=== PATIENT | female | born 1960 | race Caucasian/White ===

== ENCOUNTER 2016-08-30 12:25 | Emergency (ER) | payer OTHER ==
[2016-08-30 13:09] LABS: BASO # 0.1 K/mm3 (0.0-0.2); BASO % 0.8 % (0.0-1.0); EOS # 0.3 K/mm3 (0.0-0.50); EOS % 3.9 % (0.0-3.0); LARGE UNSTAINED CELL # 0.3 K/mm3 (0.0-0.4); LARGE UNSTAINED CELL % 3.7 % (0.0-4.0); LYMPH # 2.5 K/mm3 (1.5-4.5); LYMPH % 35.8 % (24.0-44.0); MEAN CORPUSCULAR HEMOGLOBIN 28.9 pg (27.0-33.0); MEAN CORPUSCULAR HGB CONC 33.1 g/dl (32.0-36.5); MEAN CORPUSCULAR VOLUME 87.3 fl (80.0-96.0); MONO # 0.5 K/mm3 (0.0-0.8); MONO % 6.5 % (0.0-5.0); NEUTROPHILS # 3.5 K/mm3 (1.8-7.7); NEUTROPHILS % 49.4 % (36.0-66.0); PLATELET COUNT, AUTOMATED 215 k/mm3 (150-450); RED CELL DISTRIBUTION WIDTH 12.8 % (11.5-14.5)
--- NOTE | 2016-08-30 13:22 | REP ---
Clinical: Contusion . Comparison: 08/21/06 . Findings: The mediastinum and cardiac silhouette are stable and within normal limits for portable technique. The lung jones are clear without acute consolidation, effusion, or pneumothorax. Skeletal structures are intact. Impression: Normal portable chest x-ray Signed by Jay Adkins MD 08/30/2016 01:13 P
[2016-08-30 13:24] LABS: ANION GAP 8 MEQ/L (8-16); BLOOD UREA NITROGEN 16 MG/DL (7-18); CALCIUM LEVEL 9.7 MG/DL (8.5-10.1); CARBON DIOXIDE LEVEL 27 MEQ/L (21-32); CHLORIDE LEVEL 108 MEQ/L (98-107); CREATININE FOR GFR 1.03 MG/DL (0.55-1.02); GLOMERULAR FILTRATION RATE 59.2 (>51); GLUCOSE, FASTING 96 MG/DL (70-105); POTASSIUM SERUM 3.6 MEQ/L (3.5-5.1); SODIUM LEVEL 143 MEQ/L (136-145)
--- NOTE | 2016-08-30 18:39 | EDDOCDS ---
Nurse's Notes [facility] Name: Mi Phillips Age: 55 yrs Sex: Female : 1960 Arrival Date: 08/30/2016 Time: 12:25 Bed 11 Private MD: NO PRIMARY PHYSICIAN, . Diagnosis: Chest pain, unspecified Presentation: 08/30 12:32 Presenting complaint: Patient states: mid sternal chest pain that started one hour ago. ck1 Denies nausea. Reports some SOB. 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 Adult Sepsis Screening: The patient does not have new or ck1 worsening altered mentation. Patient's respiratory rate is less than 22. Systolic blood pressure is greater than 100. Patient has a qSOFA score of 0- Negative Sepsis Screen. Suicide/Homicide risk assessment- the patient denies having any suicidal and/or homicidal ideations and does not present with any other emotional, behavioral or mental health complaints. Status: Patient is not a technical service specialist or dependent. Transition of care: patient was not received from another setting of care. Red Flag criteria, patient assessed and taken directly to a bed. 12:33 Method Of Arrival: Wheelchair ck1 Triage Assessment: 12:36 General: Appears in no apparent distress, comfortable, Behavior is appropriate for age, ck1 cooperative. Pain: Location: chest Pain At worst was 7 out of 10 on a pain scale. HIV screening NA for this visit Offered previously. Neurological: Level of Consciousness is awake, alert, obeys commands, Oriented to person, place, time. Cardiovascular: Chest pain is described as vague, radiates back episodes 60 minutes began 1 hour prior to arrival. Respiratory: Respiratory effort is even, unlabored, Respiratory pattern is regular, symmetrical. GI: No deficits noted. Derm: Skin is pink, warm & dry. 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 none - PMHx: mitral valve prolapse; - PSHx: Hysterectomy; - The history from nurses notes was reviewed: and I agree with what is documented. - Social history: Smoking status: Patient states former smoker of tobacco. No barriers to communication noted, The patient speaks fluent Bangladeshi, Speaks appropriately for age. - : The pt / caregiver states he / she is not on anticoagulants. Home medication list is obtained from the patient. - Hospitalizations: : No recent hospitalization is reported. - Exposure Risk Screening:: None identified. - Immunization history:: All immunizations up-to-date. - Family history: Pertinent for Mother has/had Father has/had Brother has/had cardiac disorder. - Social history:: the patient is a former smoker, the patient does not drink alcohol. Screenin:16 Screening information is obtained from the patient. Fall risk: No risks identified. lf1 Assistance ADL's: requires no assistance with activities of daily living. Abuse/DV Screen: The patient / caregiver reports he/she is: not in a situation that causes fear, pain or injury. Nutritional screening: No deficits noted. Advance Directives: Currently, there is no health care proxy. home support is adequate. Assessment: 12:45 General: Appears in no apparent distress, comfortable, Behavior is anxious, mlb1 cooperative. Pain: Denies pain. Cardiovascular: Rhythm is sinus rhythm No ectopy. Respiratory: Airway is patent Respiratory effort is even, unlabored, Breath sounds are clear bilaterally. Derm: Skin is pink, warm & dry. normal. 13:45 General: Appears in no apparent distress, comfortable, Behavior is appropriate for age, mlb1 cooperative. Pain: Denies pain. Respiratory: No deficits noted. 14:32 General: Appears in no apparent distress, comfortable, Behavior is appropriate for age, mlb1 cooperative. Pain: Denies pain. Cardiovascular: Rhythm is sinus rhythm No ectopy. 15:30 General: Appears in no apparent distress, comfortable, Behavior is cooperative. Pain: lf1 Denies pain. Neurological: Level of Consciousness is awake, alert, Oriented to person, place, time. Respiratory: Respiratory effort is even, unlabored, Respiratory pattern is regular, Breath sounds are clear bilaterally. GI: Denies nausea, vomiting. Derm: Skin is normal. 16:00 General: Appears in no apparent distress, comfortable. Respiratory: Respiratory effort lf1 is even, unlabored. 17:16 Adult Sepsis Screening: The patient does not have new or worsening altered mentation. lf1 Patient's respiratory rate is less than 22. Systolic blood pressure is greater than 100. Patient has a qSOFA score of 0- Negative Sepsis Screen. General: Appears in no apparent distress, comfortable, Behavior is cooperative. Pain: Denies pain. Neurological: Level of Consciousness is awake, alert. EENT: No deficits noted. Cardiovascular: Chest pain is denied. Respiratory: Respiratory effort is even, unlabored. GI: Denies nausea, vomiting. Derm: Skin is normal. 18:34 Adult Sepsis Screening: The patient does not have new or worsening altered mentation. lf1 Patient's respiratory rate is less than 22. Systolic blood pressure is greater than 100. Patient has a qSOFA score of 0- Negative Sepsis Screen. General: Appears in no apparent distress, comfortable, Behavior is cooperative. Pain: Denies pain. Neurological: Level of Consciousness is awake, alert, Oriented to person, place, time. EENT: No deficits noted. Cardiovascular: Chest pain is denied. Respiratory: Respiratory effort is even, unlabored, Respiratory pattern is regular. GI: Denies nausea, vomiting. Derm: Skin is pink, warm & dry. Vital Signs: 12:25 BP 159 / 82; Pulse 78; Resp 17; Temp 97.2(T); Pulse Ox 100% on R/A; Weight 90.72 kg lr2 (R); Height 5 ft. 5 in. (165.10 cm) (R); 13:09 BP 117 / 71 (auto/); lf1 13:09 Pulse 72 MON; Pulse Ox 97% ; lf1 13:24 BP 121 / 76 (auto/); lf1 13:24 Pulse 70 MON; Pulse Ox 95% ; lf1 13:39 BP 115 / 69 (auto/); lf1 13:39 Pulse 70 MON; Pulse Ox 95% ; lf1 13:54 BP 104 / 60 (auto/); lf1 13:54 Pulse 76 MON; Pulse Ox 97% ; lf1 14:09 BP 122 / 65 (auto/); lf1 14:09 Pulse 64 MON; Pulse Ox 97% ; lf1 14:24 BP 114 / 61 (auto/); lf1 14:24 Pulse 62 MON; Pulse Ox 99% ; lf1 14:39 BP 114 / 59 (auto/); lf1 14:39 Pulse 72 MON; Pulse Ox 97% ; lf1 14:54 BP 120 / 67 (auto/); lf1 14:55 Pulse 82 MON; Pulse Ox 98% ; lf1 15:09 BP 110 / 65 (auto/); lf1 15:09 Pulse 70 MON; Pulse Ox 97% ; lf1 15:24 BP 123 / 73 (auto/); lf1 15:25 Pulse 70 MON; Pulse Ox 97% ; lf1 15:39 Pulse 72 MON; Pulse Ox 99% ; lf1 15:39 BP 112 / 67 (auto/); Resp 16; lf1 15:54 BP 110 / 66 (auto/); lf1 15:54 Pulse 70 MON; Pulse Ox 97% ; lf1 16:09 BP 145 / 81 (auto/); lf1 16:10 Pulse 98 MON; lf1 16:24 BP 121 / 58 (auto/); lf1 16:24 Pulse 72 MON; Pulse Ox 99% ; lf1 16:39 BP 119 / 60 (auto/); lf1 16:39 Pulse 74 MON; Pulse Ox 97% ; lf1 16:54 BP 123 / 63 (auto/); lf1 16:54 Pulse 70 MON; Pulse Ox 97% ; lf1 17:06 Pulse 68 MON; Pulse Ox 97% ; lf1 17:09 BP 121 / 66 (auto/); lf1 17:09 Pulse 72 MON; Pulse Ox 98% ; lf1 17:16 Resp 16; Temp 97.6(O); Pain 0/10; lf1 17:24 BP 116 / 65 (auto/); lf1 17:25 Pulse 70 MON; Pulse Ox 97% ; lf1 17:39 BP 107 / 62 (auto/); lf1 17:40 Pulse 70 MON; Pulse Ox 96% ; lf1 17:54 BP 108 / 66 (auto/); lf1 17:55 Pulse 66 MON; Pulse Ox 99% ; lf1 18:09 BP 119 / 73 (auto/); lf1 18:10 Pulse 66 MON; Pulse Ox 97% ; lf1 18:24 BP 123 / 72 (auto/); lf1 18:25 Pulse 74 MON; Resp 16; Temp 98.0(O); Pulse Ox 96% ; Pain 0/10; lf1 12:25 Body Mass Index 33.28 (90.72 kg, 165.10 cm) lr2 Vitals: 12:25 RN notified that patient meets Red Flag criteria. lr2 12:29 Log In Time: August 30, 2016 at 12:25. lr2 ED Course: 12:27 Patient visited by Zoila Villanueva. lr2 12:27 Patient moved to Waiting lr2 12:28 NO PRIMARY PHYSICIAN, . is Private Physician. 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 Pulse ox on. NIBP on. dem1 12:39 EKG done. (by ED staff). Reviewed by Arron Ervin MD. dem1 12:40 Patient visited by Stephanie Beebe. dem1 12:40 Patient visited by Brigid Zaidi. nb2 12:44 Arron Ervin MD is Attending Physician. pc 12:46 Patient visited by Steve Booth, RN. mlb1 12:46 The patient / caregiver is instructed regarding the plan of care and ED course. Patient mishel has correct armband on for positive identification. Placed in gown. Bed in low position. Call light in reach. Side rails up X 1. 12:46 Inserted saline lock: 20 gauge in left antecubital area and blood collected. The mllorelei patient tolerated the procedure well. 12:57 Patient visited by Arron Ervin MD. pc 13:23 portable chest Returned. EDMS 13:45 Patient visited by Steve Booth, RN. mlb1 14:32 Patient visited by Steve Booth, RN. mlb1 14:56 EKG done. (by ED staff). Reviewed by Arron Ervin MD. nb2 14:58 Patient visited by Brigdi Zaidi. nb2 14:59 CARDIAC MARKER PANEL Sent. mlb1 16:01 [facility] Payment Agreement was scanned into [employer] and attached to record. zo 16:43 Patient visited by Arron Ervin MD. pc 17:25 CARDIAC MARKER PANEL Sent. lf1 17:25 Labs drawn. (by ED staff). Sent per order to lab. lf1 17:26 Patient visited by Patricia Reyes,JAKE. lf1 17:35 EKG done. (by ED staff). Reviewed by Arron Ervin MD. nb2 17:42 Patient visited by Brigid Zaidi. nb2 18:24 Ned Zepeda is Referral Physician. pc 18:25 Discontinued IV lock intact, bleeding controlled, pressure dressing applied, No lf1 redness/swelling at site. No procedures done that require assistance. 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): Aspirin Chewable Tablet 324 mg PO once mlb1 Order Results: Lab Order: Basic Metabolic Profile; SPEC'M 08/30/16 12:44 Test: GLUCOSE, FASTING; Value: 96; Range: 70-105; Units: MG/DL; Status: F Test: BLOOD UREA NITROGEN; Value: 16; Range: 7-18; Units: MG/DL; Status: F Test: CREATININE FOR GFR; Value: 1.03; Range: 0.55-1.02; Abnormal: Above high normal; Units: MG/DL; Status: F Test: GLOMERULAR FILTRATION RATE; Value: 59.2; Range: >51; Status: F Test: SODIUM LEVEL; Value: 143; Range: 136-145; Units: MEQ/L; Status: F Test: POTASSIUM SERUM; Value: 3.6; Range: 3.5-5.1; Units: MEQ/L; Status: F Test: CHLORIDE LEVEL; Value: 108; Range: 98-107; Abnormal: Above high normal; Units: MEQ/L; Status: F Test: CARBON DIOXIDE LEVEL; Value: 27; Range: 21-32; Units: MEQ/L; Status: F Test: ANION GAP; Value: 8; Range: 8-16; Units: MEQ/L; Status: F Test: CALCIUM LEVEL; Value: 9.7; Range: 8.5-10.1; Units: MG/DL; Status: F Test Note: ; Units are mL/min/1.73 m2 Chronic Kidney Disease Staging per NKF: Stage I & II GFR >=60 Normal to Mildly Decreased Stage III GFR 30-59 Moderately Decreased Stage IV GFR 15-29 Severely Decreased Stage V GFR <15 Very Little GFR Left ESRD GFR <15 on OPTICAL SYSTEMS ENGINEER Lab Order: CBC with Diff; SPEC'M 08/30/16 12:44 Test: WHITE BLOOD COUNT; Value: 7.0; Range: 4.0-10.0; Units: K/mm3; Status: F Test: RED BLOOD COUNT; Value: 4.73; Range: 4.00-5.40; Units: M/mm3; Status: F Test: HEMOGLOBIN; Value: 13.7; Range: 12.0-16.0; Units: g/dl; Status: F Test: HEMATOCRIT; Value: 41.3; Range: 36.0-47.0; Units: %; Status: F Test: MEAN CORPUSCULAR VOLUME; Value: 87.3; Range: 80.0-96.0; Units: fl; Status: F Test: MEAN CORPUSCULAR HEMOGLOBIN; Value: 28.9; Range: 27.0-33.0; Units: pg; Status: F Test: MEAN CORPUSCULAR HGB CONC; Value: 33.1; Range: 32.0-36.5; Units: g/dl; Status: F Test: RED CELL DISTRIBUTION WIDTH; Value: 12.8; Range: 11.5-14.5; Units: %; Status: F Test: PLATELET COUNT, AUTOMATED; Value: 215; Range: 150-450; Units: k/mm3; Status: F Test: NEUTROPHILS %; Value: 49.4; Range: 36.0-66.0; Units: %; Status: F Test: LYMPH %; Value: 35.8; Range: 24.0-44.0; Units: %; Status: F Test: MONO %; Value: 6.5; Range: 0.0-5.0; Abnormal: Above high normal; Units: %; Status: F Test: EOS %; Value: 3.9; Range: 0.0-3.0; Abnormal: Above high normal; Units: %; Status: F Test: BASO %; Value: 0.8; Range: 0.0-1.0; Units: %; Status: F Test: LARGE UNSTAINED CELL %; Value: 3.7; Range: 0.0-4.0; Units: %; Status: F Test: NEUTROPHILS #; Value: 3.5; Range: 1.8-7.7; Units: K/mm3; Status: F Test: LYMPH #; Value: 2.5; Range: 1.5-4.5; Units: K/mm3; Status: F Test: MONO #; Value: 0.5; Range: 0.0-0.8; Units: K/mm3; Status: F Test: EOS #; Value: 0.3; Range: 0.0-0.50; Units: K/mm3; Status: F Test: BASO #; Value: 0.1; Range: 0.0-0.2; Units: K/mm3; Status: F Test: LARGE UNSTAINED CELL #; Value: 0.3; Range: 0.0-0.4; Units: K/mm3; Status: F Lab Order: Cardiac Injury Profile; [facility] 08/30/16 12:44 Test: CPK CREATINE PHOSPHOKINASE; Value: 133; Range: 26-192; Units: U/L; Status: F Test: CK-MB VALUE MASS; Value: 1.7; Range: 0.0-3.6; Units: NG/ML; Status: F Test: MB/CK RELATIVE INDEX; Value: 1.27; Range: < OR =4; Status: F Test Note: ; DIAGNOSIS CRITERIA MMB ng/ml Relative Index (RI) NON-AMI < or = 5 N/A WORRELL [place]ONE > 5 < or = 4 AMI > 5 > 4 Lab Order: Troponin; [facility] 08/30/16 12:44 Test: TROPONIN I; Value: < 0.02; Range: < 0.10; Units: NG/ML; Status: F Test Note: ; Troponin I Reference Interval for Andela LOCI: 99th Percentile= 0.00-0.045 ng/ml Risk Stratification: <= 0.10 ng/ml Decreased Risk for Adverse Clinical Events. 0.10-1.50 ng/ml Increased Risk for Adverse Clinical Events. Evaluation of additional criterion and/or repeat testing in 2-6 hours is suggested to rule out myocardial damage. >= 1.50 ng/ml Indicative of Myocardial Injury. Lab Order: CARDIAC MARKER PANEL; [facility] 08/30/16 14:58 Test: CPK CREATINE PHOSPHOKINASE; Value: 121; Range: 26-192; Units: U/L; Status: F Test: CK-MB VALUE MASS; Value: 1.8; Range: 0.0-3.6; Units: NG/ML; Status: F Test: MB/CK RELATIVE INDEX; Value: 1.48; Range: < OR =4; Status: F Test: TROPONIN I; Value: < 0.02; Range: < 0.10; Units: NG/ML; Status: F Test Note: ; DIAGNOSIS CRITERIA MMB ng/ml Relative Index (RI) NON-AMI < or = 5 N/A WORRELL ZONE > 5 < or = 4 AMI > 5 > 4 Lab Order: CARDIAC MARKER PANEL; [facility] 08/30/16 17:23 Test: CPK CREATINE PHOSPHOKINASE; Value: 113; Range: 26-192; Units: U/L; Status: F Test: CK-MB VALUE MASS; Value: 1.4; Range: 0.0-3.6; Units: NG/ML; Status: F Test: MB/CK RELATIVE INDEX; Value: 1.23; Range: < OR =4; Status: F Test: TROPONIN I; Value: < 0.02; Range: < 0.10; Units: NG/ML; Status: F Test Note: ; DIAGNOSIS CRITERIA MMB ng/ml Relative Index (RI) NON-AMI < or = 5 N/A WORRELL ZONE > 5 < or = 4 AMI > 5 > 4 Radiology Order: portable chest Test: portable chest REASON FOR EXAMINATION: Chest Pain; Clinical: Contusion .; ; Comparison: 08/21/06 .; ; Findings:; The mediastinum and cardiac silhouette are stable and within normal limits for; portable technique. The lung jones are clear without acute consolidation,; effusion, or pneumothorax. Skeletal structures are intact.; ; Impression:; Normal portable chest x-ray; ; ; Signed by; Jay Adkins MD 08/30/2016 01:13 P; Outcome: 18:24 Discharge ordered by Provider. pc 18:25 Discharge Assessment: Patient awake, alert and oriented x 3. No cognitive and/or lf1 functional deficits noted. Patient verbalized understanding of disposition instructions. Patient awake and alert. Oriented to person, place and time. Patient verbalized understanding of disposition instructions. Patient has no functional deficits. patient administered narcotics - no. The following High Risk Discharge criteria are identified: None. Discharged to home ambulatory. Condition: improved. Discharge instructions given to patient, Instructed on discharge instructions, follow up and referral plans. medication usage, Demonstrated understanding of instructions, medications, Pt was receptive of discharge instructions/ teaching. Prescriptions given X 2. No special radiology studies were completed. Property :Personal belongings accompany Pt. 18:37 Patient left the ED. lf1 Signatures: Dispatcher [employer] EDMS Arron Ervin MD MD pc Barney, Michael B RN RN mlb1 Pat Lagos RN RN ck1 Krysten Castaneda RN RN jo3 Fabian Pate Lisa, RN RN lf1 Stephanie Beebe1 Brigid Zaidi2 Zoila Villanueva2 MTDD
--- NOTE | 2016-08-30 18:39 | EDDOCDS ---
Physician Documentation [facility] Name: Mi Phillips Age: 55 yrs Sex: Female : 1960 Arrival Date: 08/30/2016 Time: 12:25 Bed 11 Private MD: NO PRIMARY PHYSICIAN, . Disposition: 08/30 18:24 Critical Care: Critical care not applicable. pc Disposition: 08/30/16 18:24 Discharged to Home/Self Care. Impression: Chest pain, unspecified. - Condition is Stable. - Discharge Instructions: Nonspecific Chest Pain. - Prescriptions for Protonix 40 mg Oral Tablet - take 1 tablet by ORAL route once daily; 30 tablet. Aspirin 81 mg - take 1 tablet by ORAL route once daily; 90 tablet. - Medication Reconciliation, Local Pharmacy Hours form. - Follow up: Ned Zepeda; When: Call to arrange an appointment; Reason: Further diagnostic work-up, To establish care. - Problem is new. - Symptoms are resolved. HPI: 13:11 This 55 yrs old Female presents to ER via Wheelchair with complaints of Chest pc Pain. 13:11 The history is obtained from the patient. Symptoms began suddenly at 11:30, and pc resolved She was talking on the phone when she developed chest discomfort . Symptoms have resolved. They lasted for 1 hours. At its worst, the symptoms were a 5 out of 10. In the emergency department, the symptoms has resolved. The chest pain is described as a pressure, a tightness. It is located primarily in the substernal area. The pain radiates to the back. The chest pain was associated with no other symptoms. The symptoms are aggravated by nothing. The symptoms are alleviated by nothing. The patient's known risk factors for coronary artery disease include: smoking cigarettes, a family history of coronary artery disease. The patient has experienced a previous episode, last week, when she had it at night and blamed it on the [place] food he ate earlier. The patient has not recently seen a physician. Historical: - Allergies: No known drug Allergies; - Home Meds: 1. none - PMHx: mitral valve prolapse; - PSHx: Hysterectomy; - The history from nurses notes was reviewed: and I agree with what is documented. - Social history: Smoking status: Patient states former smoker of tobacco. No barriers to communication noted, The patient speaks fluent Pal[place]an, Speaks appropriately for age. - : The pt / caregiver states he / she is not on anticoagulants. Home medication list is obtained from the patient. - Hospitalizations: : No recent hospitalization is reported. - Exposure Risk Screening:: None identified. - Immunization history:: All immunizations up-to-date. - Family history: Pertinent for Mother has/had Father has/had Brother has/had cardiac disorder. - Social history:: the patient is a former smoker, the patient does not drink alcohol. 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 The cardiovascular, respiratory, pc gastrointestinal and neurological components are also addressed in the HPI. Exam: 13:11 General Appearance: alert, no acute distress. pc 13:11 ENT: ear, nose and throat normal, pharynx normal. 13:11 Neck: supple, non-tender, no masses are appreciated. 13:11 Respiratory: no respiratory distress, normal breath sounds. 13:11 Cardiovascular: regular pulse rate, regular heart rhythm, normal heart sounds, equal and full pulses bilaterally. 13:11 Abdomen: soft, non-tender, no organomegaly, normal bowel sounds. 13:11 Skin: skin color is normal, warm, dry. 13:11 Extremities: The extremities have a grossly normal appearance, are non-tender, without acute ROM abnormalities. 13:11 Neuro: alert, oriented to person, place and time, cranial nerves normal as tested, no motor deficits, no sensory deficits. 13:11 Psych: normal mood. Vital Signs: 12:25 BP 159 / 82; Pulse 78; Resp 17; Temp 97.2(T); Pulse Ox 100% on R/A; Weight 90.72 kg / lr2 200 lbs (R); Height 5 ft. 5 in. (165.10 cm) (R); 13:09 BP 117 / 71 (auto/); lf1 13:09 Pulse 72 MON; Pulse Ox 97% ; lf1 13:24 BP 121 / 76 (auto/); lf1 13:24 Pulse 70 MON; Pulse Ox 95% ; lf1 13:39 BP 115 / 69 (auto/); lf1 13:39 Pulse 70 MON; Pulse Ox 95% ; lf1 13:54 BP 104 / 60 (auto/); lf1 13:54 Pulse 76 MON; Pulse Ox 97% ; lf1 14:09 BP 122 / 65 (auto/); lf1 14:09 Pulse 64 MON; Pulse Ox 97% ; lf1 14:24 BP 114 / 61 (auto/); lf1 14:24 Pulse 62 MON; Pulse Ox 99% ; lf1 14:39 BP 114 / 59 (auto/); lf1 14:39 Pulse 72 MON; Pulse Ox 97% ; lf1 14:54 BP 120 / 67 (auto/); lf1 14:55 Pulse 82 MON; Pulse Ox 98% ; lf1 15:09 BP 110 / 65 (auto/); lf1 15:09 Pulse 70 MON; Pulse Ox 97% ; lf1 15:24 BP 123 / 73 (auto/); lf1 15:25 Pulse 70 MON; Pulse Ox 97% ; lf1 15:39 Pulse 72 MON; Pulse Ox 99% ; lf1 15:39 BP 112 / 67 (auto/); Resp 16; lf1 15:54 BP 110 / 66 (auto/); lf1 15:54 Pulse 70 MON; Pulse Ox 97% ; lf1 16:09 BP 145 / 81 (auto/); lf1 16:10 Pulse 98 MON; lf1 16:24 BP 121 / 58 (auto/); lf1 16:24 Pulse 72 MON; Pulse Ox 99% ; lf1 16:39 BP 119 / 60 (auto/); lf1 16:39 Pulse 74 MON; Pulse Ox 97% ; lf1 16:54 BP 123 / 63 (auto/); lf1 16:54 Pulse 70 MON; Pulse Ox 97% ; lf1 17:06 Pulse 68 MON; Pulse Ox 97% ; lf1 17:09 BP 121 / 66 (auto/); lf1 17:09 Pulse 72 MON; Pulse Ox 98% ; lf1 17:16 Resp 16; Temp 97.6(O); Pain 0/10; lf1 17:24 BP 116 / 65 (auto/); lf1 17:25 Pulse 70 MON; Pulse Ox 97% ; lf1 17:39 BP 107 / 62 (auto/); lf1 17:40 Pulse 70 MON; Pulse Ox 96% ; lf1 17:54 BP 108 / 66 (auto/); lf1 17:55 Pulse 66 MON; Pulse Ox 99% ; lf1 18:09 BP 119 / 73 (auto/); lf1 18:10 Pulse 66 MON; Pulse Ox 97% ; lf1 18:24 BP 123 / 72 (auto/); lf1 18:25 Pulse 74 MON; Resp 16; Temp 98.0(O); Pulse Ox 96% ; Pain 0/10; lf1 12:25 Body Mass Index 33.28 (90.72 kg, 165.10 cm) lr2 MDM: 12:34 ECG WITH READING ER PHYS+CARDIAG ordered. EDMS 12:58 Aspirin Chewable Tablet 324 mg PO once ordered. pc 12:58 Solo Musician/Pulse Ox/q 30 min VS ordered. pc 12:58 IV Saline Lock ordered. pc 12:58 Rhythm Strip to chart ordered. pc 13:00 Basic Metabolic Profile Ordered. EDMS 13:00 CBC with Diff Ordered. EDMS 13:00 Cardiac Injury Profile Ordered. EDMS 13:00 Troponin Ordered. EDMS 13:00 portable chest Ordered. EDMS 13:10 Test interpretation: EKG. pc 13:11 Differential diagnosis: acute myocardial infarction, coronary artery disease pc gastroesophageal reflux disease (GERD), unstable angina. Plan: labs, EKG, CXR, meds. The patient not medicated with aspirin in the Emergency Department because the patient had taken aspirin within 24 hours prior to arrival in the Emergency Department. 13:24 portable chest Reviewed. pc 13:24 CBC with Diff Reviewed. pc 13:27 Basic Metabolic Profile Reviewed. pc 13:27 Cardiac Injury Profile Reviewed. pc 13:27 Troponin Reviewed. pc 13:27 Repeat EKG (put time details section) ordered. pc 13:27 Redraw CIP &Troponin (put time in details section) ordered. pc 13:30 Repeat EKG (put time details section) complete. deg 13:30 Redraw CIP &Troponin (put time in details section) complete. deg 13:30 CARDIAC MARKER PANEL Ordered. EDMS 13:32 ECG WITH READING ER PHYS ordered. EDMS 13:34 Test interpretation: LAB - all labs as ordered have been reviewed, interpreted and pc considered in the overall management of the clinical presentation; X-RAY - interpreted by Radiologist and personally reviewed, 1 view chest no acute disease. 15:00 Test interpretation: EKG. pc 15:33 CARDIAC MARKER PANEL Reviewed. pc 15:35 Repeat EKG (put time details section) ordered. pc 15:35 Redraw CIP &Troponin (put time in details section) ordered. pc 15:39 Repeat EKG (put time details section) complete. deg 15:39 Redraw CIP &Troponin (put time in details section) complete. deg 15:40 ECG WITH READING ER PHYS ordered. EDMS 15:40 CARDIAC MARKER PANEL Ordered. EDMS 15:57 Financial registration complete. zo 16:01 [facility] Payment Agreement was scanned into [employer] and attached to record. zo 17:48 Data reviewed: old medical records, vital signs, nurses notes, EKG(s), lab test pc results, all radiology studies and available results. Test interpretation: EKG. 18:22 CARDIAC MARKER PANEL Reviewed. pc 18:24 The patient has been re-examined and re-evaluated. The clinical presentation did not pc require any ED treatment or interventions. Physician consultation: Dr. Ned Zepeda was contacted at 18:24, regarding patient's condition, and advises the medications/treatment as provided. and agrees with the treatment provided and advises the discharge plans as outlined. Disposition: The historical points, examination findings, and any diagnostic results supporting the provided diagnosis, were discussed with the patient or legal guardian. The need for outpatient follow up with the provider listed on their discharge instructions was discussed. They were encouraged to return to [facility], or the nearest ED, if symptoms worsen/persist, or for any other questions/concerns. EC:10 Rate is 70 beats/min. Rhythm is regular, Normal Sinus Rhythm. QRS [place] is Normal. MN pc interval is normal. QRS interval is normal. QT interval is normal. Q waves are Old in lead III. T waves are Normal. ST Segment is depressed in leads I, II, aVL, aVF, V3, V4, V5, V6, <1mm. Clinical impression: Normal Sinus Rhythm, Nonspecific ST-T changes, and Inferior SD - age indeterminate. 15:00 Rate is 61 beats/min. Rhythm is regular, Normal Sinus Rhythm. QRS [place] is Normal. MN pc interval is normal. QRS interval is normal. QT interval is normal. No Q waves. T waves are Normal. No ST changes noted. Clinical impression: Normal Sinus Rhythm. 17:48 Rate is 59 beats/min. Rhythm is regular, Normal Sinus Rhythm. QRS [place] is Normal. MN pc interval is normal. QRS interval is normal. QT interval is normal. Q waves are Old. T waves are Normal. No ST changes noted. Clinical impression: Sinus bradycardia and Inferior SD - age indeterminate. Administered Medications: 13:05 Not Given (pt took STUDIO COORDINATOR): Aspirin Chewable Tablet 324 mg PO once mlb1 Signatures: Dispatcher [employer] EDMS Arron Ervin MD MD pc Murray, Denise, Health Economist Unit deg Pat LagosRN RN ck1 Fabian Pate Lisa, RN RN lf1 Steve Booth RN mlb1 The chart was reviewed and I authenticate all verbal orders and agree with the evaluation and treatment provided.Attachments: 16:01 [facility] Payment Agreement zo MTDD
--- NOTE | 2016-08-31 19:35 | ECGEPIP ---
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
--- NOTE | 2016-08-31 19:44 | ECGEPIP ---
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
--- NOTE | 2016-09-01 19:39 | EDDOCDS ---
Physician Documentation [facility] Name: Mi Phillips Age: 55 yrs Sex: Female : 1960 Arrival Date: 08/30/2016 Time: 12:25 Bed 11 Private MD: NO PRIMARY PHYSICIAN, . Disposition: 08/30 18:24 Critical Care: Critical care not applicable. pc Disposition: 08/30/16 18:24 Discharged to Home/Self Care. Impression: Chest pain, unspecified. - Condition is Stable. - Discharge Instructions: Nonspecific Chest Pain. - Prescriptions for Protonix 40 mg Oral Tablet - take 1 tablet by ORAL route once daily; 30 tablet. Aspirin 81 mg - take 1 tablet by ORAL route once daily; 90 tablet. - Medication Reconciliation, Local Pharmacy Hours form. - Follow up: Ned Zepeda; When: Call to arrange an appointment; Reason: Further diagnostic work-up, To establish care. - Problem is new. - Symptoms are resolved. HPI: 13:11 This 55 yrs old Female presents to ER via Wheelchair with complaints of Chest pc Pain. 13:11 The history is obtained from the patient. Symptoms began suddenly at 11:30, and pc resolved She was talking on the phone when she developed chest discomfort . Symptoms have resolved. They lasted for 1 hours. At its worst, the symptoms were a 5 out of 10. In the emergency department, the symptoms has resolved. The chest pain is described as a pressure, a tightness. It is located primarily in the substernal area. The pain radiates to the back. The chest pain was associated with no other symptoms. The symptoms are aggravated by nothing. The symptoms are alleviated by nothing. The patient's known risk factors for coronary artery disease include: smoking cigarettes, a family history of coronary artery disease. The patient has experienced a previous episode, last week, when she had it at night and blamed it on the Indian food he ate earlier. The patient has not recently seen a physician. Historical: - Allergies: No known drug Allergies; - Home Meds: 1. none - PMHx: mitral valve prolapse; - PSHx: Hysterectomy; - The history from nurses notes was reviewed: and I agree with what is documented. - Social history: Smoking status: Patient states former smoker of tobacco. No barriers to communication noted, The patient speaks fluent [place]an, Speaks appropriately for age. - : The pt / caregiver states he / she is not on anticoagulants. Home medication list is obtained from the patient. - Hospitalizations: : No recent hospitalization is reported. - Exposure Risk Screening:: None identified. - Immunization history:: All immunizations up-to-date. - Family history: Pertinent for Mother has/had Father has/had Brother has/had cardiac disorder. - Social history:: the patient is a former smoker, the patient does not drink alcohol. 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 The cardiovascular, respiratory, pc gastrointestinal and neurological components are also addressed in the HPI. Exam: 13:11 General Appearance: alert, no acute distress. pc 13:11 ENT: ear, nose and throat normal, pharynx normal. 13:11 Neck: supple, non-tender, no masses are appreciated. 13:11 Respiratory: no respiratory distress, normal breath sounds. 13:11 Cardiovascular: regular pulse rate, regular heart rhythm, normal heart sounds, equal and full pulses bilaterally. 13:11 Abdomen: soft, non-tender, no organomegaly, normal bowel sounds. 13:11 Skin: skin color is normal, warm, dry. 13:11 Extremities: The extremities have a grossly normal appearance, are non-tender, without acute ROM abnormalities. 13:11 Neuro: alert, oriented to person, place and time, cranial nerves normal as tested, no motor deficits, no sensory deficits. 13:11 Psych: normal mood. Vital Signs: 12:25 BP 159 / 82; Pulse 78; Resp 17; Temp 97.2(T); Pulse Ox 100% on R/A; Weight 90.72 kg / lr2 200 lbs (R); Height 5 ft. 5 in. (165.10 cm) (R); 13:09 BP 117 / 71 (auto/); lf1 13:09 Pulse 72 MON; Pulse Ox 97% ; lf1 13:24 BP 121 / 76 (auto/); lf1 13:24 Pulse 70 MON; Pulse Ox 95% ; lf1 13:39 BP 115 / 69 (auto/); lf1 13:39 Pulse 70 MON; Pulse Ox 95% ; lf1 13:54 BP 104 / 60 (auto/); lf1 13:54 Pulse 76 MON; Pulse Ox 97% ; lf1 14:09 BP 122 / 65 (auto/); lf1 14:09 Pulse 64 MON; Pulse Ox 97% ; lf1 14:24 BP 114 / 61 (auto/); lf1 14:24 Pulse 62 MON; Pulse Ox 99% ; lf1 14:39 BP 114 / 59 (auto/); lf1 14:39 Pulse 72 MON; Pulse Ox 97% ; lf1 14:54 BP 120 / 67 (auto/); lf1 14:55 Pulse 82 MON; Pulse Ox 98% ; lf1 15:09 BP 110 / 65 (auto/); lf1 15:09 Pulse 70 MON; Pulse Ox 97% ; lf1 15:24 BP 123 / 73 (auto/); lf1 15:25 Pulse 70 MON; Pulse Ox 97% ; lf1 15:39 Pulse 72 MON; Pulse Ox 99% ; lf1 15:39 BP 112 / 67 (auto/); Resp 16; lf1 15:54 BP 110 / 66 (auto/); lf1 15:54 Pulse 70 MON; Pulse Ox 97% ; lf1 16:09 BP 145 / 81 (auto/); lf1 16:10 Pulse 98 MON; lf1 16:24 BP 121 / 58 (auto/); lf1 16:24 Pulse 72 MON; Pulse Ox 99% ; lf1 16:39 BP 119 / 60 (auto/); lf1 16:39 Pulse 74 MON; Pulse Ox 97% ; lf1 16:54 BP 123 / 63 (auto/); lf1 16:54 Pulse 70 MON; Pulse Ox 97% ; lf1 17:06 Pulse 68 MON; Pulse Ox 97% ; lf1 17:09 BP 121 / 66 (auto/); lf1 17:09 Pulse 72 MON; Pulse Ox 98% ; lf1 17:16 Resp 16; Temp 97.6(O); Pain 0/10; lf1 17:24 BP 116 / 65 (auto/); lf1 17:25 Pulse 70 MON; Pulse Ox 97% ; lf1 17:39 BP 107 / 62 (auto/); lf1 17:40 Pulse 70 MON; Pulse Ox 96% ; lf1 17:54 BP 108 / 66 (auto/); lf1 17:55 Pulse 66 MON; Pulse Ox 99% ; lf1 18:09 BP 119 / 73 (auto/); lf1 18:10 Pulse 66 MON; Pulse Ox 97% ; lf1 18:24 BP 123 / 72 (auto/); lf1 18:25 Pulse 74 MON; Resp 16; Temp 98.0(O); Pulse Ox 96% ; Pain 0/10; lf1 12:25 Body Mass Index 33.28 (90.72 kg, 165.10 cm) lr2 MDM: 12:34 ECG WITH READING ER PHYS+CARDIAG ordered. EDMS 12:58 Aspirin Chewable Tablet 324 mg PO once ordered. pc 12:58 Hide Tanner/Pulse Ox/q 30 min VS ordered. pc 12:58 IV Saline Lock ordered. pc 12:58 Rhythm Strip to chart ordered. pc 13:00 Basic Metabolic Profile Ordered. EDMS 13:00 CBC with Diff Ordered. EDMS 13:00 Cardiac Injury Profile Ordered. EDMS 13:00 Troponin Ordered. EDMS 13:00 portable chest Ordered. EDMS 13:10 Test interpretation: EKG. pc 13:11 Differential diagnosis: acute myocardial infarction, coronary artery disease pc gastroesophageal reflux disease (GERD), unstable angina. Plan: labs, EKG, CXR, meds. The patient not medicated with aspirin in the Emergency Department because the patient had taken aspirin within 24 hours prior to arrival in the Emergency Department. 13:24 portable chest Reviewed. pc 13:24 CBC with Diff Reviewed. pc 13:27 Basic Metabolic Profile Reviewed. pc 13:27 Cardiac Injury Profile Reviewed. pc 13:27 Troponin Reviewed. pc 13:27 Repeat EKG (put time details section) ordered. pc 13:27 Redraw CIP &Troponin (put time in details section) ordered. pc 13:30 Repeat EKG (put time details section) complete. deg 13:30 Redraw CIP &Troponin (put time in details section) complete. deg 13:30 CARDIAC MARKER PANEL Ordered. EDMS 13:32 ECG WITH READING ER PHYS ordered. EDMS 13:34 Test interpretation: LAB - all labs as ordered have been reviewed, interpreted and pc considered in the overall management of the clinical presentation; X-RAY - interpreted by Radiologist and personally reviewed, 1 view chest no acute disease. 15:00 Test interpretation: EKG. pc 15:33 CARDIAC MARKER PANEL Reviewed. pc 15:35 Repeat EKG (put time details section) ordered. pc 15:35 Redraw CIP &Troponin (put time in details section) ordered. pc 15:39 Repeat EKG (put time details section) complete. deg 15:39 Redraw CIP &Troponin (put time in details section) complete. deg 15:40 ECG WITH READING ER PHYS ordered. EDMS 15:40 CARDIAC MARKER PANEL Ordered. EDMS 15:57 Financial registration complete. zo 16:01 [facility] Payment Agreement was scanned into [employer] and attached to record. zo 17:48 Data reviewed: old medical records, vital signs, nurses notes, EKG(s), lab test pc results, all radiology studies and available results. Test interpretation: EKG. 18:22 CARDIAC MARKER PANEL Reviewed. pc 18:24 The patient has been re-examined and re-evaluated. The clinical presentation did not pc require any ED treatment or interventions. Physician consultation: Dr. Ned Zepeda was contacted at 18:24, regarding patient's condition, and advises the medications/treatment as provided. and agrees with the treatment provided and advises the discharge plans as outlined. Disposition: The historical points, examination findings, and any diagnostic results supporting the provided diagnosis, were discussed with the patient or legal guardian. The need for outpatient follow up with the provider listed on their discharge instructions was discussed. They were encouraged to return to [facility], or the nearest ED, if symptoms worsen/persist, or for any other questions/concerns. 08/31 12:34 ECG/EKG was scanned into [employer] and attached to record. gb EC/16 13:10 Rate is 70 beats/min. Rhythm is regular, Normal Sinus Rhythm. QRS [place] is Normal. SD pc interval is normal. QRS interval is normal. QT interval is normal. Q waves are Old in lead III. T waves are Normal. ST Segment is depressed in leads I, II, aVL, aVF, V3, V4, V5, V6, <1mm. Clinical impression: Normal Sinus Rhythm, Nonspecific ST-T changes, and Inferior [place] - age indeterminate. 15:00 Rate is 61 beats/min. Rhythm is regular, Normal Sinus Rhythm. QRS [place] is Normal. SD pc interval is normal. QRS interval is normal. QT interval is normal. No Q waves. T waves are Normal. No ST changes noted. Clinical impression: Normal Sinus Rhythm. 17:48 Rate is 59 beats/min. Rhythm is regular, Normal Sinus Rhythm. QRS [place] is Normal. SD pc interval is normal. QRS interval is normal. QT interval is normal. Q waves are Old. T waves are Normal. No ST changes noted. Clinical impression: Sinus bradycardia and Inferior IL - age indeterminate. 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
--- NOTE | 2016-09-01 19:39 | EDDOCDS ---
Nurse's Notes [facility] Name: Yordan Galan Age: 55 yrs Sex: Female : 1960 Arrival Date: 08/30/2016 Time: 12:25 Bed 11 Private MD: NO PRIMARY PHYSICIAN, . Diagnosis: Chest pain, unspecified Presentation: 08/30 12:32 Presenting complaint: Patient states: mid sternal chest pain that started one hour ago. ck1 Denies nausea. Reports some SOB. 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 Adult Sepsis Screening: The patient does not have new or ck1 worsening altered mentation. Patient's respiratory rate is less than 22. Systolic blood pressure is greater than 100. Patient has a qSOFA score of 0- Negative Sepsis Screen. Suicide/Homicide risk assessment- the patient denies having any suicidal and/or homicidal ideations and does not present with any other emotional, behavioral or mental health complaints. Status: Patient is not a client services associate or dependent. Transition of care: patient was not received from another setting of care. Red Flag criteria, patient assessed and taken directly to a bed. 12:33 Method Of Arrival: Wheelchair ck1 Triage Assessment: 12:36 General: Appears in no apparent distress, comfortable, Behavior is appropriate for age, ck1 cooperative. Pain: Location: chest Pain At worst was 7 out of 10 on a pain scale. HIV screening NA for this visit Offered previously. Neurological: Level of Consciousness is awake, alert, obeys commands, Oriented to person, place, time. Cardiovascular: Chest pain is described as vague, radiates back episodes 60 minutes began 1 hour prior to arrival. Respiratory: Respiratory effort is even, unlabored, Respiratory pattern is regular, symmetrical. GI: No deficits noted. Derm: Skin is pink, warm & dry. CLINICAL DATA ANALYST: 12:38 LMP N/A - Hysterectomy ck1 Historical: - Allergies: No known drug Allergies; - Home Meds: 1. none - PMHx: mitral valve prolapse; - PSHx: Hysterectomy; - The history from nurses notes was reviewed: and I agree with what is documented. - Social history: Smoking status: Patient states former smoker of tobacco. No barriers to communication noted, The patient speaks fluent Indian, Speaks appropriately for age. - : The pt / caregiver states he / she is not on anticoagulants. Home medication list is obtained from the patient. - Hospitalizations: : No recent hospitalization is reported. - Exposure Risk Screening:: None identified. - Immunization history:: All immunizations up-to-date. - Family history: Pertinent for Mother has/had Father has/had Brother has/had cardiac disorder. - Social history:: the patient is a former smoker, the patient does not drink alcohol. Screenin:16 Screening information is obtained from the patient. Fall risk: No risks identified. lf1 Assistance ADL's: requires no assistance with activities of daily living. Abuse/DV Screen: The patient / caregiver reports he/she is: not in a situation that causes fear, pain or injury. Nutritional screening: No deficits noted. Advance Directives: Currently, there is no health care proxy. home support is adequate. Assessment: 12:45 General: Appears in no apparent distress, comfortable, Behavior is anxious, mlb1 cooperative. Pain: Denies pain. Cardiovascular: Rhythm is sinus rhythm No ectopy. Respiratory: Airway is patent Respiratory effort is even, unlabored, Breath sounds are clear bilaterally. Derm: Skin is pink, warm & dry. normal. 13:45 General: Appears in no apparent distress, comfortable, Behavior is appropriate for age, mlb1 cooperative. Pain: Denies pain. Respiratory: No deficits noted. 14:32 General: Appears in no apparent distress, comfortable, Behavior is appropriate for age, mlb1 cooperative. Pain: Denies pain. Cardiovascular: Rhythm is sinus rhythm No ectopy. 15:30 General: Appears in no apparent distress, comfortable, Behavior is cooperative. Pain: lf1 Denies pain. Neurological: Level of Consciousness is awake, alert, Oriented to person, place, time. Respiratory: Respiratory effort is even, unlabored, Respiratory pattern is regular, Breath sounds are clear bilaterally. GI: Denies nausea, vomiting. Derm: Skin is normal. 16:00 General: Appears in no apparent distress, comfortable. Respiratory: Respiratory effort lf1 is even, unlabored. 17:16 Adult Sepsis Screening: The patient does not have new or worsening altered mentation. lf1 Patient's respiratory rate is less than 22. Systolic blood pressure is greater than 100. Patient has a qSOFA score of 0- Negative Sepsis Screen. General: Appears in no apparent distress, comfortable, Behavior is cooperative. Pain: Denies pain. Neurological: Level of Consciousness is awake, alert. EENT: No deficits noted. Cardiovascular: Chest pain is denied. Respiratory: Respiratory effort is even, unlabored. GI: Denies nausea, vomiting. Derm: Skin is normal. 18:34 Adult Sepsis Screening: The patient does not have new or worsening altered mentation. lf1 Patient's respiratory rate is less than 22. Systolic blood pressure is greater than 100. Patient has a qSOFA score of 0- Negative Sepsis Screen. General: Appears in no apparent distress, comfortable, Behavior is cooperative. Pain: Denies pain. Neurological: Level of Consciousness is awake, alert, Oriented to person, place, time. EENT: No deficits noted. Cardiovascular: Chest pain is denied. Respiratory: Respiratory effort is even, unlabored, Respiratory pattern is regular. GI: Denies nausea, vomiting. Derm: Skin is pink, warm & dry. Vital Signs: 12:25 BP 159 / 82; Pulse 78; Resp 17; Temp 97.2(T); Pulse Ox 100% on R/A; Weight 90.72 kg lr2 (R); Height 5 ft. 5 in. (165.10 cm) (R); 13:09 BP 117 / 71 (auto/); lf1 13:09 Pulse 72 MON; Pulse Ox 97% ; lf1 13:24 BP 121 / 76 (auto/); lf1 13:24 Pulse 70 MON; Pulse Ox 95% ; lf1 13:39 BP 115 / 69 (auto/); lf1 13:39 Pulse 70 MON; Pulse Ox 95% ; lf1 13:54 BP 104 / 60 (auto/); lf1 13:54 Pulse 76 MON; Pulse Ox 97% ; lf1 14:09 BP 122 / 65 (auto/); lf1 14:09 Pulse 64 MON; Pulse Ox 97% ; lf1 14:24 BP 114 / 61 (auto/); lf1 14:24 Pulse 62 MON; Pulse Ox 99% ; lf1 14:39 BP 114 / 59 (auto/); lf1 14:39 Pulse 72 MON; Pulse Ox 97% ; lf1 14:54 BP 120 / 67 (auto/); lf1 14:55 Pulse 82 MON; Pulse Ox 98% ; lf1 15:09 BP 110 / 65 (auto/); lf1 15:09 Pulse 70 MON; Pulse Ox 97% ; lf1 15:24 BP 123 / 73 (auto/); lf1 15:25 Pulse 70 MON; Pulse Ox 97% ; lf1 15:39 Pulse 72 MON; Pulse Ox 99% ; lf1 15:39 BP 112 / 67 (auto/); Resp 16; lf1 15:54 BP 110 / 66 (auto/); lf1 15:54 Pulse 70 MON; Pulse Ox 97% ; lf1 16:09 BP 145 / 81 (auto/); lf1 16:10 Pulse 98 MON; lf1 16:24 BP 121 / 58 (auto/); lf1 16:24 Pulse 72 MON; Pulse Ox 99% ; lf1 16:39 BP 119 / 60 (auto/); lf1 16:39 Pulse 74 MON; Pulse Ox 97% ; lf1 16:54 BP 123 / 63 (auto/); lf1 16:54 Pulse 70 MON; Pulse Ox 97% ; lf1 17:06 Pulse 68 MON; Pulse Ox 97% ; lf1 17:09 BP 121 / 66 (auto/); lf1 17:09 Pulse 72 MON; Pulse Ox 98% ; lf1 17:16 Resp 16; Temp 97.6(O); Pain 0/10; lf1 17:24 BP 116 / 65 (auto/); lf1 17:25 Pulse 70 MON; Pulse Ox 97% ; lf1 17:39 BP 107 / 62 (auto/); lf1 17:40 Pulse 70 MON; Pulse Ox 96% ; lf1 17:54 BP 108 / 66 (auto/); lf1 17:55 Pulse 66 MON; Pulse Ox 99% ; lf1 18:09 BP 119 / 73 (auto/); lf1 18:10 Pulse 66 MON; Pulse Ox 97% ; lf1 18:24 BP 123 / 72 (auto/); lf1 18:25 Pulse 74 MON; Resp 16; Temp 98.0(O); Pulse Ox 96% ; Pain 0/10; lf1 12:25 Body Mass Index 33.28 (90.72 kg, 165.10 cm) lr2 Vitals: 12:25 RN notified that patient meets Red Flag criteria. lr2 12:29 Log In Time: August 30, 2016 at 12:25. lr2 ED Course: 12:27 Patient visited by Zoila Villanueva. lr2 12:27 Patient moved to Waiting lr2 12:28 NO PRIMARY PHYSICIAN, . is Private Physician. lr2 12:29 Patient moved to Pre RCE lr2 12:30 Patient moved to 11 jo3 12:32 Triage Initiated ck1 12:39 passenger agent on. Pulse ox on. NIBP on. dem1 12:39 EKG done. (by ED staff). Reviewed by Arron Ervin MD. dem1 12:40 Patient visited by Stephanie Beebe. dem1 12:40 Patient visited by Brigid Zaidi. nb2 12:44 Arron Ervin MD is Attending Physician. pc 12:46 Patient visited by Steve Booth, RN. mlb1 12:46 The patient / caregiver is instructed regarding the plan of care and ED course. Patient mishel has correct armband on for positive identification. Placed in gown. Bed in low position. Call light in reach. Side rails up X 1. 12:46 Inserted saline lock: 20 gauge in left antecubital area and blood collected. The mllorelei patient tolerated the procedure well. 12:57 Patient visited by Arron Ervin MD. pc 13:23 portable chest Returned. EDMS 13:45 Patient visited by Steve Booth, RN. mlb1 14:32 Patient visited by Steve Booth, RN. mlb1 14:56 EKG done. (by ED staff). Reviewed by Arron Ervin MD. nb2 14:58 Patient visited by Brigid Zaidi. nb2 14:59 CARDIAC MARKER PANEL Sent. mlb1 16:01 [facility] Payment Agreement was scanned into [employer] System and attached to record. zo 16:43 Patient visited by Arron Ervin MD. pc 17:25 CARDIAC MARKER PANEL Sent. lf1 17:25 Labs drawn. (by ED staff). Sent per order to lab. lf1 17:26 Patient visited by Patricia Reyes,JAKE. lf1 17:35 EKG done. (by ED staff). Reviewed by Arron Ervin MD. nb2 17:42 Patient visited by Brigid Zaidi. nb2 18:24 Ned Zepeda is Referral Physician. pc 18:25 Discontinued IV lock intact, bleeding controlled, pressure dressing applied, No lf1 redness/swelling at site. No procedures done that require assistance. 08/31 12:34 ECG/EKG was scanned into Data D[employer] System and attached to record. gb 20:02 EKG-ADULT Returned. EDMS 20:02 ECG WITH READING ER PHYS Returned. 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 MACHINE OPERATOR HELPER): Aspirin Chewable Tablet 324 mg PO once mlb1 Order Results: Lab Order: Basic Metabolic Profile; SPEC'M 08/30/16 12:44 Test: GLUCOSE, FASTING; Value: 96; Range: 70-105; Units: MG/DL; Status: F Test: BLOOD UREA NITROGEN; Value: 16; Range: 7-18; Units: MG/DL; Status: F Test: CREATININE FOR GFR; Value: 1.03; Range: 0.55-1.02; Abnormal: Above high normal; Units: MG/DL; Status: F Test: GLOMERULAR FILTRATION RATE; Value: 59.2; Range: >51; Status: F Test: SODIUM LEVEL; Value: 143; Range: 136-145; Units: MEQ/L; Status: F Test: POTASSIUM SERUM; Value: 3.6; Range: 3.5-5.1; Units: MEQ/L; Status: F Test: CHLORIDE LEVEL; Value: 108; Range: 98-107; Abnormal: Above high normal; Units: MEQ/L; Status: F Test: CARBON DIOXIDE LEVEL; Value: 27; Range: 21-32; Units: MEQ/L; Status: F Test: ANION GAP; Value: 8; Range: 8-16; Units: MEQ/L; Status: F Test: CALCIUM LEVEL; Value: 9.7; Range: 8.5-10.1; Units: MG/DL; Status: F Test Note: ; Units are mL/min/1.73 m2 Chronic Kidney Disease Staging per NKF: Stage I & II GFR >=60 Normal to Mildly Decreased Stage III GFR 30-59 Moderately Decreased Stage IV GFR 15-29 Severely Decreased Stage V GFR <15 Very Little GFR Left ESRD GFR <15 on NIPPLE MACHINE OPERATOR Lab Order: CBC with Diff; SPEC'M 08/30/16 12:44 Test: WHITE BLOOD COUNT; Value: 7.0; Range: 4.0-10.0; Units: K/mm3; Status: F Test: RED BLOOD COUNT; Value: 4.73; Range: 4.00-5.40; Units: M/mm3; Status: F Test: HEMOGLOBIN; Value: 13.7; Range: 12.0-16.0; Units: g/dl; Status: F Test: HEMATOCRIT; Value: 41.3; Range: 36.0-47.0; Units: %; Status: F Test: MEAN CORPUSCULAR VOLUME; Value: 87.3; Range: 80.0-96.0; Units: fl; Status: F Test: MEAN CORPUSCULAR HEMOGLOBIN; Value: 28.9; Range: 27.0-33.0; Units: pg; Status: F Test: MEAN CORPUSCULAR HGB CONC; Value: 33.1; Range: 32.0-36.5; Units: g/dl; Status: F Test: RED CELL DISTRIBUTION WIDTH; Value: 12.8; Range: 11.5-14.5; Units: %; Status: F Test: PLATELET COUNT, AUTOMATED; Value: 215; Range: 150-450; Units: k/mm3; Status: F Test: NEUTROPHILS %; Value: 49.4; Range: 36.0-66.0; Units: %; Status: F Test: LYMPH %; Value: 35.8; Range: 24.0-44.0; Units: %; Status: F Test: MONO %; Value: 6.5; Range: 0.0-5.0; Abnormal: Above high normal; Units: %; Status: F Test: EOS %; Value: 3.9; Range: 0.0-3.0; Abnormal: Above high normal; Units: %; Status: F Test: BASO %; Value: 0.8; Range: 0.0-1.0; Units: %; Status: F Test: LARGE UNSTAINED CELL %; Value: 3.7; Range: 0.0-4.0; Units: %; Status: F Test: NEUTROPHILS #; Value: 3.5; Range: 1.8-7.7; Units: K/mm3; Status: F Test: LYMPH #; Value: 2.5; Range: 1.5-4.5; Units: K/mm3; Status: F Test: MONO #; Value: 0.5; Range: 0.0-0.8; Units: K/mm3; Status: F Test: EOS #; Value: 0.3; Range: 0.0-0.50; Units: K/mm3; Status: F Test: BASO #; Value: 0.1; Range: 0.0-0.2; Units: K/mm3; Status: F Test: LARGE UNSTAINED CELL #; Value: 0.3; Range: 0.0-0.4; Units: K/mm3; Status: F Lab Order: Cardiac Injury Profile; [facility] 08/30/16 12:44 Test: CPK CREATINE PHOSPHOKINASE; Value: 133; Range: 26-192; Units: U/L; Status: F Test: CK-MB VALUE MASS; Value: 1.7; Range: 0.0-3.6; Units: NG/ML; Status: F Test: MB/CK RELATIVE INDEX; Value: 1.27; Range: < OR =4; Status: F Test Note: ; DIAGNOSIS CRITERIA MMB ng/ml Relative Index (RI) NON-AMI < or = 5 N/A WORRELL ZONE > 5 < or = 4 AMI > 5 > 4 Lab Order: Troponin; [facility] 08/30/16 12:44 Test: TROPONIN I; Value: < 0.02; Range: < 0.10; Units: NG/ML; Status: F Test Note: ; Troponin I Reference Interval for [employer] LOCI: 99th Percentile= 0.00-0.045 ng/ml Risk Stratification: <= 0.10 ng/ml Decreased Risk for Adverse Clinical Events. 0.10-1.50 ng/ml Increased Risk for Adverse Clinical Events. Evaluation of additional criterion and/or repeat testing in 2-6 hours is suggested to rule out myocardial damage. >= 1.50 ng/ml Indicative of Myocardial Injury. Lab Order: CARDIAC MARKER PANEL; [facility] 08/30/16 14:58 Test: CPK CREATINE PHOSPHOKINASE; Value: 121; Range: 26-192; Units: U/L; Status: F Test: CK-MB VALUE MASS; Value: 1.8; Range: 0.0-3.6; Units: NG/ML; Status: F Test: MB/CK RELATIVE INDEX; Value: 1.48; Range: < OR =4; Status: F Test: TROPONIN I; Value: < 0.02; Range: < 0.10; Units: NG/ML; Status: F Test Note: ; DIAGNOSIS CRITERIA MMB ng/ml Relative Index (RI) NON-AMI < or = 5 N/A WORRELL ZONE > 5 < or = 4 AMI > 5 > 4 Lab Order: CARDIAC MARKER PANEL; SPEC'M 08/30/16 17:23 Test: CPK CREATINE PHOSPHOKINASE; Value: 113; Range: 26-192; Units: U/L; Status: F Test: CK-MB VALUE MASS; Value: 1.4; Range: 0.0-3.6; Units: NG/ML; Status: F Test: MB/CK RELATIVE INDEX; Value: 1.23; Range: < OR =4; Status: F Test: TROPONIN I; Value: < 0.02; Range: < 0.10; Units: NG/ML; Status: F Test Note: ; DIAGNOSIS CRITERIA MMB ng/ml Relative Index (RI) NON-AMI < or = 5 N/A WORRELL ZONE > 5 < or = 4 AMI > 5 > 4 Radiology Order: EKG-ADULT Test: EKG-ADULT REASON FOR EXAMINATION: Chest Pain; Stationary ECG Study; [facility] - ED; ; Test Date: 2016-08-30; Pat Name: YORDAN GALAN Department:; Room: -; 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; : 1960 Requested By: Arron Brooke; Order Number: [id number] Reading MD: Justine Garnett; Measurements; Intervals Stevenson; Rate: 70 P: 38; NJ: 148 QRS: 32; QRSD: 85 T: 42; QT: 379; QTc: 409; Interpretive Statements; SINUS RHYTHM; MODERATE ST DEPRESSION; DELAYED R PROGRESSION; NO PRIOR FOR COMPARISON; Electronically Signed On 08-31-2016 19:35:42 EST by Justine Garnett; Radiology Order: portable chest Test: portable chest REASON FOR EXAMINATION: Chest Pain; Clinical: Contusion .; ; Comparison: 08/21/06 .; ; Findings:; The mediastinum and cardiac silhouette are stable and within normal limits for; portable technique. The lung jones are clear without acute consolidation,; effusion, or pneumothorax. 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 pc 18:25 Discharge Assessment: Patient awake, alert and oriented x 3. No cognitive and/or lf1 functional deficits noted. Patient verbalized understanding of disposition instructions. Patient awake and alert. Oriented to person, place and time. Patient verbalized understanding of disposition instructions. Patient has no functional deficits. patient administered narcotics - no. The following High Risk Discharge criteria are identified: None. Discharged to home ambulatory. Condition: improved. Discharge instructions given to patient, Instructed on discharge instructions, follow up and referral plans. medication usage, Demonstrated understanding of instructions, medications, Pt was receptive of discharge instructions/ teaching. Prescriptions given X 2. No special radiology studies were completed. Property :Personal belongings accompany Pt. 18:37 Patient left the ED. lf1 Signatures: Dispatcher [employer] EDMS Arron Ervin MD MD pc Barnhardt, Gloria, Reg Reg Steve Haider RN RN mlb1 Pat LagosRN RN ck1 Krysten Castaneda RN RN Fabian Lombardi Lisa, RN RN lf1 Stephanie Beebe1 Brigid Zaidi2 Zoila Villanueva2 Chart Complete MTDD
--- NOTE | 2016-09-01 19:39 | EDDOCDS ---
Physician Documentation [facility] Name: Mi Phillips Age: 55 yrs Sex: Female : 1960 Arrival Date: 08/30/2016 Time: 12:25 Bed 11 Private MD: NO PRIMARY PHYSICIAN, . Disposition: 08/30 18:24 Critical Care: Critical care not applicable. pc Disposition: 08/30/16 18:24 Discharged to Home/Self Care. Impression: Chest pain, unspecified. - Condition is Stable. - Discharge Instructions: Nonspecific Chest Pain. - Prescriptions for Protonix 40 mg Oral Tablet - take 1 tablet by ORAL route once daily; 30 tablet. Aspirin 81 mg - take 1 tablet by ORAL route once daily; 90 tablet. - Medication Reconciliation, Local Pharmacy Hours form. - Follow up: Ned Zepeda; When: Call to arrange an appointment; Reason: Further diagnostic work-up, To establish care. - Problem is new. - Symptoms are resolved. HPI: 13:11 This 55 yrs old Female presents to ER via Wheelchair with complaints of Chest pc Pain. 13:11 The history is obtained from the patient. Symptoms began suddenly at 11:30, and pc resolved She was talking on the phone when she developed chest discomfort . Symptoms have resolved. They lasted for 1 hours. At its worst, the symptoms were a 5 out of 10. In the emergency department, the symptoms has resolved. The chest pain is described as a pressure, a tightness. It is located primarily in the substernal area. The pain radiates to the back. The chest pain was associated with no other symptoms. The symptoms are aggravated by nothing. The symptoms are alleviated by nothing. The patient's known risk factors for coronary artery disease include: smoking cigarettes, a family history of coronary artery disease. The patient has experienced a previous episode, last week, when she had it at night and blamed it on the [place] food he ate earlier. The patient has not recently seen a physician. Historical: - Allergies: No known drug Allergies; - Home Meds: 1. none - PMHx: mitral valve prolapse; - PSHx: Hysterectomy; - The history from nurses notes was reviewed: and I agree with what is documented. - Social history: Smoking status: Patient states former smoker of tobacco. No barriers to communication noted, The patient speaks fluent Dutch, Speaks appropriately for age. - : The pt / caregiver states he / she is not on anticoagulants. Home medication list is obtained from the patient. - Hospitalizations: : No recent hospitalization is reported. - Exposure Risk Screening:: None identified. - Immunization history:: All immunizations up-to-date. - Family history: Pertinent for Mother has/had Father has/had Brother has/had cardiac disorder. - Social history:: the patient is a former smoker, the patient does not drink alcohol. OPTIMIZATION CONSULTANT: 12:38 LMP N/A - Hysterectomy ck1 ROS: 13:11 All systems are negative except as listed. The cardiovascular, respiratory, pc gastrointestinal and neurological components are also addressed in the HPI. Exam: 13:11 General Appearance: alert, no acute distress. pc 13:11 ENT: ear, nose and throat normal, pharynx normal. 13:11 Neck: supple, non-tender, no masses are appreciated. 13:11 Respiratory: no respiratory distress, normal breath sounds. 13:11 Cardiovascular: regular pulse rate, regular heart rhythm, normal heart sounds, equal and full pulses bilaterally. 13:11 Abdomen: soft, non-tender, no organomegaly, normal bowel sounds. 13:11 Skin: skin color is normal, warm, dry. 13:11 Extremities: The extremities have a grossly normal appearance, are non-tender, without acute ROM abnormalities. 13:11 Neuro: alert, oriented to person, place and time, cranial nerves normal as tested, no motor deficits, no sensory deficits. 13:11 Psych: normal mood. Vital Signs: 12:25 BP 159 / 82; Pulse 78; Resp 17; Temp 97.2(T); Pulse Ox 100% on R/A; Weight 90.72 kg / lr2 200 lbs (R); Height 5 ft. 5 in. (165.10 cm) (R); 13:09 BP 117 / 71 (auto/); lf1 13:09 Pulse 72 MON; Pulse Ox 97% ; lf1 13:24 BP 121 / 76 (auto/); lf1 13:24 Pulse 70 MON; Pulse Ox 95% ; lf1 13:39 BP 115 / 69 (auto/); lf1 13:39 Pulse 70 MON; Pulse Ox 95% ; lf1 13:54 BP 104 / 60 (auto/); lf1 13:54 Pulse 76 MON; Pulse Ox 97% ; lf1 14:09 BP 122 / 65 (auto/); lf1 14:09 Pulse 64 MON; Pulse Ox 97% ; lf1 14:24 BP 114 / 61 (auto/); lf1 14:24 Pulse 62 MON; Pulse Ox 99% ; lf1 14:39 BP 114 / 59 (auto/); lf1 14:39 Pulse 72 MON; Pulse Ox 97% ; lf1 14:54 BP 120 / 67 (auto/); lf1 14:55 Pulse 82 MON; Pulse Ox 98% ; lf1 15:09 BP 110 / 65 (auto/); lf1 15:09 Pulse 70 MON; Pulse Ox 97% ; lf1 15:24 BP 123 / 73 (auto/); lf1 15:25 Pulse 70 MON; Pulse Ox 97% ; lf1 15:39 Pulse 72 MON; Pulse Ox 99% ; lf1 15:39 BP 112 / 67 (auto/); Resp 16; lf1 15:54 BP 110 / 66 (auto/); lf1 15:54 Pulse 70 MON; Pulse Ox 97% ; lf1 16:09 BP 145 / 81 (auto/); lf1 16:10 Pulse 98 MON; lf1 16:24 BP 121 / 58 (auto/); lf1 16:24 Pulse 72 MON; Pulse Ox 99% ; lf1 16:39 BP 119 / 60 (auto/); lf1 16:39 Pulse 74 MON; Pulse Ox 97% ; lf1 16:54 BP 123 / 63 (auto/); lf1 16:54 Pulse 70 MON; Pulse Ox 97% ; lf1 17:06 Pulse 68 MON; Pulse Ox 97% ; lf1 17:09 BP 121 / 66 (auto/); lf1 17:09 Pulse 72 MON; Pulse Ox 98% ; lf1 17:16 Resp 16; Temp 97.6(O); Pain 0/10; lf1 17:24 BP 116 / 65 (auto/); lf1 17:25 Pulse 70 MON; Pulse Ox 97% ; lf1 17:39 BP 107 / 62 (auto/); lf1 17:40 Pulse 70 MON; Pulse Ox 96% ; lf1 17:54 BP 108 / 66 (auto/); lf1 17:55 Pulse 66 MON; Pulse Ox 99% ; lf1 18:09 BP 119 / 73 (auto/); lf1 18:10 Pulse 66 MON; Pulse Ox 97% ; lf1 18:24 BP 123 / 72 (auto/); lf1 18:25 Pulse 74 MON; Resp 16; Temp 98.0(O); Pulse Ox 96% ; Pain 0/10; lf1 12:25 Body Mass Index 33.28 (90.72 kg, 165.10 cm) lr2 MDM: 12:34 ECG WITH READING ER PHYS+CARDIAG ordered. EDMS 12:58 Aspirin Chewable Tablet 324 mg PO once ordered. pc 12:58 Manager Architecture/Pulse Ox/q 30 min VS ordered. pc 12:58 IV Saline Lock ordered. pc 12:58 Rhythm Strip to chart ordered. pc 13:00 Basic Metabolic Profile Ordered. EDMS 13:00 CBC with Diff Ordered. EDMS 13:00 Cardiac Injury Profile Ordered. EDMS 13:00 Troponin Ordered. EDMS 13:00 portable chest Ordered. EDMS 13:10 Test interpretation: EKG. pc 13:11 Differential diagnosis: acute myocardial infarction, coronary artery disease pc gastroesophageal reflux disease (GERD), unstable angina. Plan: labs, EKG, CXR, meds. The patient not medicated with aspirin in the Emergency Department because the patient had taken aspirin within 24 hours prior to arrival in the Emergency Department. 13:24 portable chest Reviewed. pc 13:24 CBC with Diff Reviewed. pc 13:27 Basic Metabolic Profile Reviewed. pc 13:27 Cardiac Injury Profile Reviewed. pc 13:27 Troponin Reviewed. pc 13:27 Repeat EKG (put time details section) ordered. pc 13:27 Redraw CIP &Troponin (put time in details section) ordered. pc 13:30 Repeat EKG (put time details section) complete. deg 13:30 Redraw CIP &Troponin (put time in details section) complete. deg 13:30 CARDIAC MARKER PANEL Ordered. EDMS 13:32 ECG WITH READING ER PHYS ordered. EDMS 13:34 Test interpretation: LAB - all labs as ordered have been reviewed, interpreted and pc considered in the overall management of the clinical presentation; X-RAY - interpreted by Radiologist and personally reviewed, 1 view chest no acute disease. 15:00 Test interpretation: EKG. pc 15:33 CARDIAC MARKER PANEL Reviewed. pc 15:35 Repeat EKG (put time details section) ordered. pc 15:35 Redraw CIP &Troponin (put time in details section) ordered. pc 15:39 Repeat EKG (put time details section) complete. deg 15:39 Redraw CIP &Troponin (put time in details section) complete. deg 15:40 ECG WITH READING ER PHYS ordered. EDMS 15:40 CARDIAC MARKER PANEL Ordered. EDMS 15:57 Financial registration complete. zo 16:01 [facility] Payment Agreement was scanned into [employer] and attached to record. zo 17:48 Data reviewed: old medical records, vital signs, nurses notes, EKG(s), lab test pc results, all radiology studies and available results. Test interpretation: EKG. 18:22 CARDIAC MARKER PANEL Reviewed. pc 18:24 The patient has been re-examined and re-evaluated. The clinical presentation did not pc require any ED treatment or interventions. Physician consultation: Dr. Ned Zepead was contacted at 18:24, regarding patient's condition, and advises the medications/treatment as provided. and agrees with the treatment provided and advises the discharge plans as outlined. Disposition: The historical points, examination findings, and any diagnostic results supporting the provided diagnosis, were discussed with the patient or legal guardian. The need for outpatient follow up with the provider listed on their discharge instructions was discussed. They were encouraged to return to [facility], or the nearest ED, if symptoms worsen/persist, or for any other questions/concerns. 08/31 12:34 ECG/EKG was scanned into [employer] and attached to record. gb EC/16 13:10 Rate is 70 beats/min. Rhythm is regular, Normal Sinus Rhythm. QRS Keyes is Normal. IA pc interval is normal. QRS interval is normal. QT interval is normal. Q waves are Old in lead III. T waves are Normal. ST Segment is depressed in leads I, II, aVL, aVF, V3, V4, V5, V6, <1mm. Clinical impression: Normal Sinus Rhythm, Nonspecific ST-T changes, and Inferior W[place] - age indeterminate. 15:00 Rate is 61 beats/min. Rhythm is regular, Normal Sinus Rhythm. QRS Keyes is Normal. IA pc interval is normal. QRS interval is normal. QT interval is normal. No Q waves. T waves are Normal. No ST changes noted. Clinical impression: Normal Sinus Rhythm. 17:48 Rate is 59 beats/min. Rhythm is regular, Normal Sinus Rhythm. QRS Keyes is Normal. IA pc interval is normal. QRS interval is normal. QT interval is normal. Q waves are Old. T waves are Normal. No ST changes noted. Clinical impression: Sinus bradycardia and Inferior [place] - age indeterminate. Administered Medications: 13:05 Not Given (pt took RN LIAISON): Aspirin Chewable Tablet 324 mg PO once mlb1 Signatures: Dispatcher [employer] EDArron Darnell MD MD pc Murray, Denise, [employer] deg Altagracia Diaz, Reg Reg gb Pat LagosRN RN ck1 Fabian Pate Lisa, RN RN lf1 Steve Booth RN mlb1 The chart was reviewed and I authenticate all verbal orders and agree with the evaluation and treatment provided.Attachments: 16:01 [facility] [place] Payment Agreement hardeep 08/31 12:34 ECG/EKG Chart Complete [email or web address]
== END 2016-08-30 18:37 | disposition home or self-care (01) ==
LOC: M ED 12:25
DX: R07.9 Chest pain, unspecified (principal); I34.1 Nonrheumatic mitral (valve) prolapse; Z87.891 Personal history of nicotine dependence

== ENCOUNTER 2021-01-14 17:13 | Emergency (ER) | payer OTHER ==
[~2021-01-14] VITALS: Ht 170.2 cm; Wt 107.1 kg
[2021-01-14] MEDS ORDERED: MORPHINE 4 MG/ML 1ML VIAL/SYRINGE (J2270) IV ONE (17:20)
[2021-01-14] MEDS ORDERED: BOOSTRIX/ADACEL VACCINE (DIPHTH/PERTUSS/ACELL/TETANUS) 0.5ML SYR IM ONE (17:30)
[2021-01-14 17:37] LABS: BASO # 0.1 10^3/uL (0.0-0.2); BASO % 0.7 % (0.0-1.0); EOS # 0.3 10^3/uL (0.0-0.5); EOS % 3.3 % (0.0-3.0); HEMATOCRIT 44.8 % (36.0-47.0); HEMOGLOBIN 14.2 g/dl (12.0-15.5); LYMPH # 3.8 10^3/uL (1.5-5.0); LYMPH % 38.7 % (24.0-44.0); MEAN CORPUSCULAR HEMOGLOBIN 28.6 pg (27.0-33.0); MEAN CORPUSCULAR HGB CONC 31.7 g/dl (32.0-36.5); MEAN CORPUSCULAR VOLUME 90.1 fl (80.0-96.0); MONO # 0.8 10^3/uL (0.0-0.8); MONO % 8.1 % (2.0-8.0); NEUTROPHILS # 4.8 10^3/uL (1.5-8.5); NEUTROPHILS % 48.8 % (36.0-66.0); PLATELET COUNT, AUTOMATED 280 10^3/uL (150-450); RED BLOOD COUNT 4.97 10^6/uL (4.00-5.40); WHITE BLOOD COUNT 9.8 10^3/uL (4.0-10.0)
--- NOTE | 2021-01-14 17:48 | REP ---
INDICATION: trauma COMPARISON: None. TECHNIQUE: AP, lateral, bilateral oblique views left foot. FINDINGS: Fracture and partial amputation involving the distal aspect of the 1st toe. Remainder of the osseous structures and joint spaces appear intact and relatively age-appropriate. IMPRESSION: Traumatic injury to the 1st toe with fracture/partial amputation involving the distal phalanx. <Electronically signed by Jay Adkins > 01/14/21 [id number]
[2021-01-14 18:00] LABS: CREATININE FOR GFR 1.27 MG/DL (0.55-1.30)
[2021-01-14 18:01] LABS: CALCIUM LEVEL 9.3 MG/DL (8.8-10.2); GLOMERULAR FILTRATION RATE 45.7 (>45); MAGNESIUM LEVEL 2.3 MG/DL (1.8-2.4)
[2021-01-14] MEDS ORDERED: ceFAZolin SOD 2 GM in IV 1 EA IV ONE (18:50)
[2021-01-14 19:54] LABS: RSV AMPLIFICATION NEGATIVE (NEGATIVE)
[2021-01-14 20:03] VITALS: BP 133/74
== END 2021-01-14 20:18 | disposition short-term general hospital (02) ==
LOC: M ED 17:13
DX: S92.422B Displaced fracture of distal phalanx of left great toe, initial encounter for open fracture (principal); W28.XXXA Contact with powered lawn mower, initial encounter; Y92.018 Other place in single-family (private) house as the place of occurrence of the external cause
CPT/HCPCS: 73630; 80048; 83735; 85025; 87631; 90471; 90715; 96365; 96375; 99284; J0690; J2270

== ENCOUNTER 2023-12-12 08:27 | Emergency (ER) | payer OTHER ==
[~2023-12-12] VITALS: Ht 165.1 cm; Wt 90.6 kg
[2023-12-12] MEDS ORDERED: CELE0.09 (08:52)
[2023-12-12] MEDS ORDERED: IBUP-1022 (08:52)
[2023-12-12] MEDS ORDERED: HYDR-3713 (08:53)
[2023-12-12] MEDS: HYDROMORPHONE HCL 0.5 MG/ 0.5 ML SYRINGE IV ONE ×3 (11:47→17:24)
[2023-12-12 12:12] LABS: BASO % 0.3 % (0.0-1.0); EOS # 0.1 10^3/uL (0.0-0.5); EOS % 0.9 % (0.0-3.0); HEMOGLOBIN 11.5 g/dl (12.0-15.5); LYMPH # 1.6 10^3/uL (1.5-5.0); LYMPH % 21.2 % (24.0-44.0); MEAN CORPUSCULAR HEMOGLOBIN 27.7 pg (27.0-33.0); MEAN CORPUSCULAR HGB CONC 31.9 g/dl (32.0-36.5); MEAN CORPUSCULAR VOLUME 86.7 fl (80.0-96.0); MONO # 0.5 10^3/uL (0.0-0.8); MONO % 7.1 % (2.0-8.0); NEUTROPHILS # 5.4 10^3/uL (1.5-8.5); NEUTROPHILS % 70.1 % (36.0-66.0); PLATELET COUNT, AUTOMATED 322 10^3/uL (150-450); RED BLOOD COUNT 4.15 10^6/uL (4.00-5.40); WHITE BLOOD COUNT 7.6 10^3/uL (4.0-10.0)
[2023-12-12 12:29] LABS: ALBUMIN 3.6 G/DL (3.2-5.2); ALKALINE PHOSPHATASE 98 U/L (46-116); ALT/SGPT 29 U/L (7.0-40); AST/SGOT 12 U/L (<34); BILIRUBIN,TOTAL 0.6 MG/DL (0.3-1.2); BLOOD UREA NITROGEN 14 MG/DL (9-23); CALCIUM LEVEL 9.8 MG/DL (8.3-10.6); CARBON DIOXIDE LEVEL 26 MMOL/L (20-31); CHLORIDE LEVEL 105 MMOL/L (98-107); CREATININE FOR GFR 0.89 MG/DL (0.55-1.30); ERYTHROCYTE SEDIMENTATION RATE 73 mm/hr (0-30); GLOMERULAR FILTRATION RATE > 60.0 (>45); GLUCOSE, FASTING 93 MG/DL (74-106); MAGNESIUM LEVEL 2.1 MG/DL (1.8-2.4); POTASSIUM SERUM 3.8 MMOL/L (3.5-5.1); SODIUM LEVEL 138 MMOL/L (136-145); TOTAL PROTEIN 7.3 G/DL (5.7-8.2)
[2023-12-12] MEDS: METHOCARBAMOL 1,000 MG/10 ML VIAL IV ONE (13:52)
[2023-12-12] MEDS: ACETAMINOPHEN *IV* 1,000 MG in IV 1 EA IV ONE (14:26)
[2023-12-12] MEDS ORDERED: PROHANCE 279.3MG/ML 5ML VIAL As Ordered ONE (14:37)
[2023-12-12] MEDS ORDERED: PROHANCE 279.3MG/ML 15ML VIAL As Ordered ONE (14:38)
[2023-12-12 17:04] LABS: RSV AMPLIFICATION NEGATIVE (NEGATIVE)
[2023-12-12 17:45] VITALS: BP 118/58; TEMP 98.4; O2SAT 96
== END 2023-12-12 17:50 | disposition short-term general hospital (02) ==
LOC: M ED 08:27
DX: M46.26 Osteomyelitis of vertebra, lumbar region (principal); M54.50 Low back pain, unspecified; M48.061 Spinal stenosis, lumbar region without neurogenic claudication; K59.00 Constipation, unspecified; Z79.1 Long term (current) use of non-steroidal anti-inflammatories (NSAID); Z79.899 Other long term (current) drug therapy
CPT/HCPCS: 72148; 72149; 74018; 80053; 81001; 83605; 83735; 85025; 85652; 86140; 87040; 87631; 96374; 96375; 96376; 99284; A9576; J0131; J1170; J2800

== ENCOUNTER 2024-01-22 16:46 | Observation (INO) | payer OTHER ==
[~2024-01-22 16:46] MED LIST: CELE0.09; HYDR-3713; IBUP-1022
[2024-01-22] MEDS ORDERED: CEPH500C (17:03)
[2024-01-22 18:27] LABS: BASO % 0.4 % (0.0-1.0); EOS % 0.1 % (0.0-3.0); HEMATOCRIT 35.1 % (36.0-47.0); HEMOGLOBIN 11.3 g/dl (12.0-15.5); LYMPH # 0.9 10^3/uL (1.5-5.0); LYMPH % 12.8 % (24.0-44.0); MEAN CORPUSCULAR HEMOGLOBIN 27.5 pg (27.0-33.0); MEAN CORPUSCULAR HGB CONC 32.2 g/dl (32.0-36.5); MEAN CORPUSCULAR VOLUME 85.4 fl (80.0-96.0); MONO # 0.3 10^3/uL (0.0-0.8); MONO % 4.5 % (2.0-8.0); NEUTROPHILS % 81.9 % (36.0-66.0); PLATELET COUNT, AUTOMATED 223 10^3/uL (150-450); RED BLOOD COUNT 4.11 10^6/uL (4.00-5.40); WHITE BLOOD COUNT 7.4 10^3/uL (4.0-10.0)
[2024-01-22 18:49] LABS: CK-MB VALUE MASS < 1.0 NG/ML (<3.6)
[2024-01-22 18:52] LABS: BLOOD UREA NITROGEN 14 MG/DL (9-23); CALCIUM LEVEL 9.6 MG/DL (8.3-10.6); CARBON DIOXIDE LEVEL 23 MMOL/L (20-31); CHLORIDE LEVEL 110 MMOL/L (98-107); CREATININE FOR GFR 0.76 MG/DL (0.55-1.30); GLOMERULAR FILTRATION RATE > 60.0 (>45); GLUCOSE, FASTING 119 MG/DL (74-106); MAGNESIUM LEVEL 1.8 MG/DL (1.8-2.4); POTASSIUM SERUM 3.8 MMOL/L (3.5-5.1); SODIUM LEVEL 140 MMOL/L (136-145)
[2024-01-22 18:53] LABS: THYROID STIMULATING HORMONE 0.423 uIU/ML (0.55-4.78)
[2024-01-22 18:59] LABS: CPK CREATINE PHOSPHOKINASE 52 U/L (34-145); MB/CK RELATIVE INDEX 1.92 (< OR =4)
[2024-01-22] MEDS ORDERED: ONDANSETRON 4MG 2ML VIAL As Ordered ONE (19:56)
[2024-01-22] MEDS: ONDANSETRON 4MG 2ML VIAL IV ONE (20:01)
[2024-01-22] MEDS: MECLIZINE 25 MG TABLET PO ONE (20:13)
[2024-01-22 20:16] LABS: CK-MB VALUE MASS < 1.0 NG/ML (<3.6)
[2024-01-22 20:17] LABS: CPK CREATINE PHOSPHOKINASE 55 U/L (34-145); MB/CK RELATIVE INDEX 1.81 (< OR =4)
[2024-01-22] MEDS: MORPHINE 4 MG/ML 1ML VIAL IV ONE (20:40)
[2024-01-22] MEDS: NS 1,000 ML IV ONE (21:50)
[2024-01-22] MEDS ORDERED: NS 1,000 ML IV SCH (21:50)
[2024-01-22] MEDS ORDERED: MOM 30ML SUSPENSION UDC PO PRN (22:30)
[2024-01-22] MEDS ORDERED: HYDR-4514 PO (23:12)
[2024-01-22] MEDS ORDERED: CEPH500C PO (23:12)
[2024-01-22] MEDS ORDERED: HOME MED LIST COMPLETE! XX SCH (23:15)
[2024-01-23] MEDS: LR 1,000 ML IV SCH (05:30)
[2024-01-23 06:09] LABS: HEMATOCRIT 36.5 % (36.0-47.0); HEMOGLOBIN 11.6 g/dl (12.0-15.5); MEAN CORPUSCULAR HEMOGLOBIN 27.6 pg (27.0-33.0); MEAN CORPUSCULAR HGB CONC 31.8 g/dl (32.0-36.5); MEAN CORPUSCULAR VOLUME 86.9 fl (80.0-96.0); PLATELET COUNT, AUTOMATED 243 10^3/uL (150-450); WHITE BLOOD COUNT 7.5 10^3/uL (4.0-10.0)
[2024-01-23 06:40] LABS: BLOOD UREA NITROGEN 11 MG/DL (9-23); CALCIUM LEVEL 9.7 MG/DL (8.3-10.6); CARBON DIOXIDE LEVEL 24 MMOL/L (20-31); CHLORIDE LEVEL 109 MMOL/L (98-107); CREATININE FOR GFR 0.76 MG/DL (0.55-1.30); GLOMERULAR FILTRATION RATE > 60.0 (>45); GLUCOSE, FASTING 101 MG/DL (74-106); MAGNESIUM LEVEL 1.9 MG/DL (1.8-2.4); POTASSIUM SERUM 3.8 MMOL/L (3.5-5.1); SODIUM LEVEL 142 MMOL/L (136-145)
[2024-01-23 06:42] LABS: FREE T4 1.08 NG/DL (0.89-1.76)
[2024-01-23] MEDS: SENOKOT S TAB PO SCH (09:00)
[2024-01-23] MEDS ORDERED: CEPHALEXIN 500 MG CAP PO SCH ×2 (09:00→16:00)
[2024-01-23] MEDS: ENOXAPARIN 40MG/0.4ML SYRINGE (J1650 PER 10MG) SC SCH (10:04)
[2024-01-23] MEDS ORDERED: MIRALAX *UNIT DOSE* 17GM PACKET PO PRN (11:50)
[2024-01-23] MEDS: CEPHALEXIN 500 MG CAP PO ONE (13:00)
[2024-01-23 13:14] LABS: C REACTIVE PROTEIN QUANTITATIV < 0.40 MG/DL (<1.0)
[2024-01-23 13:32] VITALS: BP 130/78; TEMP 96.5; O2SAT 99
[2024-01-23 13:40] LABS: ERYTHROCYTE SEDIMENTATION RATE 18 mm/hr (0-30)
[2024-01-23 20:04] VITALS: BP 131/80; TEMP 96.5; O2SAT 97
[2024-01-23] MEDS: ACETAMINOPHEN TAB 650MG DOSE (2X325MG) PO PRN (20:40)
[2024-01-24] MEDS: CALCIUM CARBONATE 500 MG CHEW U/D PO ONE ×2 (02:00→18:37)
[2024-01-24 04:41] VITALS: BP 135/71; TEMP 97.5; O2SAT 99
[2024-01-24 06:45] LABS: BLOOD UREA NITROGEN 9 MG/DL (9-23); CALCIUM LEVEL 9.5 MG/DL (8.3-10.6); CARBON DIOXIDE LEVEL 28 MMOL/L (20-31); CHLORIDE LEVEL 108 MMOL/L (98-107); CREATININE FOR GFR 0.82 MG/DL (0.55-1.30); GLOMERULAR FILTRATION RATE > 60.0 (>45); GLUCOSE, FASTING 89 MG/DL (74-106); MAGNESIUM LEVEL 1.8 MG/DL (1.8-2.4); POTASSIUM SERUM 3.6 MMOL/L (3.5-5.1); SODIUM LEVEL 141 MMOL/L (136-145)
[2024-01-24] MEDS: ONDANSETRON 4MG 2ML VIAL IV PRN (10:09)
[2024-01-24] MEDS ORDERED: PROHANCE 279.3MG/ML 5ML VIAL As Ordered ONE (10:17)
[2024-01-24] MEDS ORDERED: PROHANCE 279.3MG/ML 15ML VIAL As Ordered ONE (10:17)
[2024-01-24 12:00] VITALS: BP_SYST 105; BP_SYST 144; BP_DIAS 58; BP_DIAS 68; TEMP 97.3; TEMP 98.1; O2SAT 95; O2SAT 97
[2024-01-24 12:34] LABS: BASO % 0.6 % (0.0-1.0); EOS # 0.1 10^3/uL (0.0-0.5); HEMATOCRIT 38.2 % (36.0-47.0); HEMOGLOBIN 12.3 g/dl (12.0-15.5); LYMPH # 2.1 10^3/uL (1.5-5.0); LYMPH % 28.8 % (24.0-44.0); MEAN CORPUSCULAR HEMOGLOBIN 27.2 pg (27.0-33.0); MEAN CORPUSCULAR HGB CONC 32.2 g/dl (32.0-36.5); MEAN CORPUSCULAR VOLUME 84.5 fl (80.0-96.0); MONO # 0.4 10^3/uL (0.0-0.8); MONO % 5.3 % (2.0-8.0); NEUTROPHILS # 4.6 10^3/uL (1.5-8.5); PLATELET COUNT, AUTOMATED 260 10^3/uL (150-450); RED BLOOD COUNT 4.52 10^6/uL (4.00-5.40); WHITE BLOOD COUNT 7.2 10^3/uL (4.0-10.0)
[2024-01-24 13:01] LABS: ERYTHROCYTE SEDIMENTATION RATE 22 mm/hr (0-30)
[2024-01-24] MEDS: NS 0.45% 1,000 ML IV SCH (13:38)
[2024-01-24] MEDS: CEPHALEXIN 500 MG CAP PO SCH (13:38)
[2024-01-24] MEDS: LACTOBACILLUS ACIDOPHILUS CAP (BACID) PO SCH (17:06)
[2024-01-24 20:36] VITALS: BP 129/62; TEMP 97.2; O2SAT 96
[2024-01-25] MEDS: CALCIUM CARBONATE 500 MG CHEW U/D PO PRN (01:13)
[2024-01-25 04:43] VITALS: BP 148/86; TEMP 96.9; O2SAT 96
[2024-01-25 12:00] VITALS: BP 149/64; TEMP 97.1; O2SAT 97
[2024-01-25] MEDS: MECLIZINE 25 MG TABLET PO SCH (12:53)
[2024-01-25 20:45] VITALS: BP 128/69; TEMP 98.1; O2SAT 96
[2024-01-26 04:00] VITALS: BP 140/80; TEMP 98; O2SAT 95
[2024-01-26] MEDS ORDERED: MECL-86 PO (10:49)
[2024-01-26] MEDS ORDERED: CEPH500T PO (10:51)
[2024-01-26] MEDS ORDERED: BACI1CAP PO (10:51)
[2024-01-26 12:17] VITALS: BP 117/80; TEMP 98; O2SAT 96
== END 2024-01-26 13:00 | disposition home health service (06) ==
LOC: M ED 16:46 → EDBD 16:46 → M ED INP 16:47 → M MS5PR 01-23 10:50
PROVIDERS: ADMIT Internal Medicine; ATTEND Internal Medicine
DX: R42 Dizziness and giddiness (principal); R11.2 Nausea with vomiting, unspecified; M46.26 Osteomyelitis of vertebra, lumbar region; Z79.2 Long term (current) use of antibiotics; Z79.899 Other long term (current) drug therapy
CPT/HCPCS: 36415; 70450; 70544; 70551; 71045; 72158; 80048; 82550; 82553; 83735; 84439; 84443; 84484; 85025; 85027; 85652; 85730; 86140; 87040; 93005; 93041; 94760; 96361; 96372; 96374; 96375; 96376; 97112; 97116; 97161; 97165; 97530; 99285; A9576; J1650; J2405

== ENCOUNTER → 2024-04-14 | Outpatient (CLI) | payer OTHER ==
[~2024-04-14] MED LIST changes: +BACI1CAP PO; +CEPH500C; +CEPH500C PO; +CEPH500T PO; +HYDR-4514 PO; +MECL-86 PO
== END ==
LOC: M RAD 07:53
PROVIDERS: ATTEND Orthopaedic Surgery
DX: M47.892 Other spondylosis, cervical region (principal); M50.322 Other cervical disc degeneration at C5-C6 level

== ENCOUNTER → 2024-05-18 | Outpatient (CLI) | payer OTHER ==
[2024-05-18 09:11] LABS: HEMATOCRIT 44.5 % (36.0-47.0); HEMOGLOBIN 14.2 g/dl (12.0-15.5); MEAN CORPUSCULAR HEMOGLOBIN 28.6 pg (27.0-33.0); MEAN CORPUSCULAR HGB CONC 31.9 g/dl (32.0-36.5); MEAN CORPUSCULAR VOLUME 89.5 fl (80.0-96.0); PLATELET COUNT, AUTOMATED 235 10^3/uL (150-450); RED BLOOD COUNT 4.97 10^6/uL (4.00-5.40)
[2024-05-18 09:38] LABS: TOTAL IRON BINDING CAPACITY 360 UG/DL (250-425)
[2024-05-18 09:39] LABS: ALBUMIN 3.7 G/DL (3.2-5.2); ALKALINE PHOSPHATASE 99 U/L (35-104); ALT/SGPT 35 U/L (7.0-40); AST/SGOT 15 U/L (<34); BILIRUBIN,TOTAL 0.5 MG/DL (0.3-1.2); BLOOD UREA NITROGEN 21 MG/DL (9-23); CARBON DIOXIDE LEVEL 26 MMOL/L (20-31); CHLORIDE LEVEL 107 MMOL/L (98-107); CHOLESTEROL LEVEL 271 MG/DL (<200); CHOLESTEROL RISK RATIO 3.97 (<5); CREATININE FOR GFR 0.92 MG/DL (0.55-1.30); GLOMERULAR FILTRATION RATE > 60.0 (>45); GLUCOSE, FASTING 97 MG/DL (74-106); HDL CHOLESTEROL 68.2 MG/DL (>40); IRON (FE) 74 UG/DL (50-170); LDL CHOLESTEROL 177.2 MG/DL (<100); NON-HDL-C 202.8 MG/DL; PERCENT SATURATION 20.6 % (13.2-45.0); POTASSIUM SERUM 4.1 MMOL/L (3.5-5.1); SODIUM LEVEL 140 MMOL/L (136-145); TOTAL PROTEIN 7.1 G/DL (5.7-8.2); TRIGLYCERIDES LEVEL 128 MG/DL (<150)
[2024-05-18 09:41] LABS: THYROID STIMULATING HORMONE 0.707 uIU/ML (0.55-4.78)
[2024-05-18 09:54] LABS: HEMOGLOBIN A1c 5.5 % (4.0-6.0)
== END ==
LOC: M LAB 08:01
PROVIDERS: ATTEND Family Medicine
DX: D64.9 Anemia, unspecified (principal); R53.83 Other fatigue; E03.9 Hypothyroidism, unspecified

== ENCOUNTER 2024-11-03 22:12 | Inpatient (IN) | payer OTHER ==
[~2024-11-03] VITALS: Ht 165.1 cm; Wt 99.3 kg
[2024-11-03 22:47] LABS: BASO % 0.3 % (0.0-1.0); EOS # 0.1 10^3/uL (0.0-0.5); EOS % 0.7 % (0.0-3.0); HEMATOCRIT 46.8 % (36.0-47.0); HEMOGLOBIN 15.4 g/dl (12.0-15.5); LYMPH # 2.1 10^3/uL (1.5-5.0); LYMPH % 20.6 % (24.0-44.0); MEAN CORPUSCULAR HEMOGLOBIN 28.5 pg (27.0-33.0); MEAN CORPUSCULAR HGB CONC 32.9 g/dl (32.0-36.5); MEAN CORPUSCULAR VOLUME 86.5 fl (80.0-96.0); MONO # 0.7 10^3/uL (0.0-0.8); MONO % 6.6 % (2.0-8.0); NEUTROPHILS # 7.2 10^3/uL (1.5-8.5); NEUTROPHILS % 71.6 % (36.0-66.0); PLATELET COUNT, AUTOMATED 285 10^3/uL (150-450); RED BLOOD COUNT 5.41 10^6/uL (4.00-5.40); WHITE BLOOD COUNT 10.1 10^3/uL (4.0-10.0)
[2024-11-03 23:26] LABS: ALBUMIN 4.1 G/DL (3.2-5.2); BILIRUBIN,DIRECT 0.3 MG/DL (<0.4); CALCIUM LEVEL 9.5 MG/DL (8.3-10.6); CREATININE FOR GFR 0.93 MG/DL (0.55-1.30); GLOMERULAR FILTRATION RATE 69.1 (>45); POTASSIUM SERUM 4.1 MMOL/L (3.5-5.1); TOTAL PROTEIN 7.3 G/DL (5.7-8.2)
[2024-11-04] MEDS ORDERED: ISOVUE-370 76% 100ML VIAL As Ordered ONE (02:28)
[2024-11-04] MEDS: ONDANSETRON 4MG 2ML VIAL IV ONE (02:35)
[2024-11-04] MEDS: NS (Normal Saline) 0.9% 1,000 ML IV ONE (02:44)
[2024-11-04] MEDS: MORPHINE 4 MG/ML 1ML VIAL IV ONE (02:57)
[2024-11-04] MEDS: HYDROMORPHONE HCL 0.5 MG/ 0.5 ML SYRINGE IV PRN (05:05)
[2024-11-04] MEDS ORDERED: MORPHINE 4 MG/ML 1ML VIAL IV PRN (05:10)
[2024-11-04] MEDS ORDERED: NALOXONE INJ 0.4MG/1ML VIAL IV PRN (05:10)
[2024-11-04] MEDS ORDERED: ONDANSETRON 4MG 2ML VIAL IV PRN (05:10)
[2024-11-04] MEDS: LR 1,000 ML IV SCH (06:16)
[2024-11-04] MEDS ORDERED: HOME MED LIST COMPLETE! XX SCH (08:05)
[2024-11-04 08:26] LABS: HEMATOCRIT 44.3 % (36.0-47.0); HEMOGLOBIN 14.2 g/dl (12.0-15.5); MEAN CORPUSCULAR HEMOGLOBIN 28.3 pg (27.0-33.0); MEAN CORPUSCULAR HGB CONC 32.1 g/dl (32.0-36.5); MEAN CORPUSCULAR VOLUME 88.4 fl (80.0-96.0); PLATELET COUNT, AUTOMATED 233 10^3/uL (150-450); RED BLOOD COUNT 5.01 10^6/uL (4.00-5.40); WHITE BLOOD COUNT 7.9 10^3/uL (4.0-10.0)
[2024-11-04 08:55] LABS: ALBUMIN 3.6 G/DL (3.2-5.2); BILIRUBIN,TOTAL 0.8 MG/DL (0.3-1.2); CREATININE FOR GFR 0.92 MG/DL (0.55-1.30); POTASSIUM SERUM 4.2 MMOL/L (3.5-5.1); TOTAL PROTEIN 6.5 G/DL (5.7-8.2)
[2024-11-04] MEDS ORDERED: ENOXAPARIN 40MG/0.4ML SYRINGE (J1650 PER 10MG) SC SCH (09:00)
[2024-11-04] MEDS: MORPHINE 2 MG/ML 1ML VIAL IV PRN ×2 (12:23→16:43)
[2024-11-04] MEDS: CEPACOL LOZENGE PO PRN (12:54)
[2024-11-04 13:00] VITALS: BP 121/71; TEMP 97.5; O2SAT 94
[2024-11-04 16:00] VITALS: BP 140/85; TEMP 97.7; O2SAT 94
[2024-11-04] MEDS: PANTOPRAZOLE 40MG VIAL IV SCH (16:43)
[2024-11-04 20:27] VITALS: BP 139/82; TEMP 97.8; O2SAT 93
[2024-11-05] MEDS: ACETAMINOPHEN *IV* 1,000 MG in IV 1 EA IV PRN (01:30)
[2024-11-05 04:46] VITALS: BP 122/78; TEMP 97.5; O2SAT 93
[2024-11-05 06:13] LABS: HEMATOCRIT 41.6 % (36.0-47.0); HEMOGLOBIN 13.2 g/dl (12.0-15.5); MEAN CORPUSCULAR HEMOGLOBIN 28.1 pg (27.0-33.0); MEAN CORPUSCULAR HGB CONC 31.7 g/dl (32.0-36.5); MEAN CORPUSCULAR VOLUME 88.7 fl (80.0-96.0); PLATELET COUNT, AUTOMATED 204 10^3/uL (150-450); RED BLOOD COUNT 4.69 10^6/uL (4.00-5.40); WHITE BLOOD COUNT 5.5 10^3/uL (4.0-10.0)
[2024-11-05 06:49] LABS: ALBUMIN 3.2 G/DL (3.2-5.2); BILIRUBIN,TOTAL 1.2 MG/DL (0.3-1.2); CALCIUM LEVEL 8.4 MG/DL (8.3-10.6); CREATININE FOR GFR 0.84 MG/DL (0.55-1.30); MAGNESIUM LEVEL 1.9 MG/DL (1.8-2.4); POTASSIUM SERUM 3.8 MMOL/L (3.5-5.1); TOTAL PROTEIN 5.8 G/DL (5.7-8.2)
[2024-11-05 08:00] VITALS: BP 125/68; TEMP 97.2; O2SAT 94
[2024-11-05] MEDS: ENOXAPARIN 40MG/0.4ML SYRINGE (J1650 PER 10MG) SC SCH (10:02)
[2024-11-05 12:00] VITALS: BP 134/69; TEMP 97.3; O2SAT 93
[2024-11-05 16:00] VITALS: BP 132/69; TEMP 97.2; O2SAT 96
[2024-11-05] MEDS: PANTOPRAZOLE 40MG VIAL IV SCH (21:09)
[2024-11-05 21:50] VITALS: BP 133/84; TEMP 97.5; O2SAT 94
[2024-11-05 23:30] VITALS: BP 135/61; TEMP 97.5; O2SAT 98
[2024-11-06 04:08] VITALS: BP 128/65; TEMP 97.5; O2SAT 96
[2024-11-06] MEDS: CHLORASEPTIC SPRAY MT PRN (04:20)
[2024-11-06 06:36] LABS: HEMOGLOBIN 12.5 g/dl (12.0-15.5); MEAN CORPUSCULAR HEMOGLOBIN 27.7 pg (27.0-33.0); MEAN CORPUSCULAR HGB CONC 31.3 g/dl (32.0-36.5); MEAN CORPUSCULAR VOLUME 88.5 fl (80.0-96.0); PLATELET COUNT, AUTOMATED 209 10^3/uL (150-450); RED BLOOD COUNT 4.52 10^6/uL (4.00-5.40); WHITE BLOOD COUNT 7.8 10^3/uL (4.0-10.0)
[2024-11-06 07:01] LABS: ALBUMIN 3.2 G/DL (3.2-5.2); ALKALINE PHOSPHATASE 67 U/L (35-104); ALT/SGPT 29 U/L (7.0-40); AST/SGOT 18 U/L (<34); BILIRUBIN,TOTAL 0.8 MG/DL (0.3-1.2); BLOOD UREA NITROGEN 13 MG/DL (9-23); CALCIUM LEVEL 8.3 MG/DL (8.3-10.6); CARBON DIOXIDE LEVEL 26 MMOL/L (20-31); CHLORIDE LEVEL 104 MMOL/L (98-107); CREATININE FOR GFR 0.71 MG/DL (0.55-1.30); GLOMERULAR FILTRATION RATE > 90.0 (>45); GLUCOSE, FASTING 78 MG/DL (74-106); POTASSIUM SERUM 3.5 MMOL/L (3.5-5.1); SODIUM LEVEL 142 MMOL/L (136-145); TOTAL PROTEIN 5.8 G/DL (5.7-8.2)
[2024-11-06 08:00] VITALS: BP 139/94; TEMP 97.5; O2SAT 93
[2024-11-06 12:00] VITALS: BP 116/61; TEMP 97.3; O2SAT 97
[2024-11-06 16:00] VITALS: BP 116/83; TEMP 97.2; O2SAT 93
[2024-11-06 20:00] VITALS: BP 119/81; TEMP 97; O2SAT 97
[2024-11-07] VITALS: BP 122/82; TEMP 97.2; O2SAT 98
[2024-11-07 04:00] VITALS: BP 126/63; TEMP 97.7; O2SAT 94
[2024-11-07 06:31] LABS: HEMATOCRIT 38.4 % (36.0-47.0); HEMOGLOBIN 12.3 g/dl (12.0-15.5); MEAN CORPUSCULAR HEMOGLOBIN 28.5 pg (27.0-33.0); MEAN CORPUSCULAR VOLUME 89.1 fl (80.0-96.0); PLATELET COUNT, AUTOMATED 212 10^3/uL (150-450); RED BLOOD COUNT 4.31 10^6/uL (4.00-5.40); WHITE BLOOD COUNT 6.1 10^3/uL (4.0-10.0)
[2024-11-07 06:59] LABS: CREATININE FOR GFR 0.82 MG/DL (0.55-1.30); GLOMERULAR FILTRATION RATE 80.3 (>45); POTASSIUM SERUM 3.5 MMOL/L (3.5-5.1)
[2024-11-07 08:00] VITALS: BP 122/62; TEMP 97.3; O2SAT 95
[2024-11-07] MEDS ORDERED: PANT-23 PO (10:05)
[2024-11-07 12:00] VITALS: BP 113/76; TEMP 97.3; O2SAT 96
== END 2024-11-07 13:31 | disposition home or self-care (01) | DRG 389 ==
LOC: M ED 22:12 → M ED INP 11-04 05:06 → M MSPAV 11-04 12:37
PROVIDERS: ADMIT Family Medicine; ATTEND Internal Medicine
DX: K56.609 Unspecified intestinal obstruction, unspecified as to partial versus complete obstruction (principal); E87.20 Acidosis, unspecified; R18.8 Other ascites; D72.829 Elevated white blood cell count, unspecified; K57.90 Diverticulosis of intestine, part unspecified, without perforation or abscess without bleeding; Z79.899 Other long term (current) drug therapy